=== PATIENT | female | born 1960 | race Caucasian/White ===

== ENCOUNTER 2021-12-22 07:59 | Outpatient (CLI) | payer BC, SELFPAY ==
--- NOTE | ~2021-12-22 | MM_ITS ---
EXAMINATION: MM screening [facility] BI w brittany HISTORY: Screening mammogram TECHNIQUE: Craniocaudal and mediolateral oblique 3-D tomosynthesis images were obtained and synthetic 2-D images were generated. CAD analysis was submitted and interpreted. COMPARISON: 05/06/2012 diagnostic right mammogram and right breast ultrasound examination bilateral screening mammogram BREAST PARENCHYMAL COMPOSITION: There are scattered areas of fibroglandular density. FINDINGS: There is a 4.3 mm circumscribed rounded opacity in the lower inner right breast, diminished in size compared to a mass noted in similar location on 05/06/2012. Occasional benign calcifications. There is no evidence of suspicious mass, calcification, or architec tural distortion to suggest malignancy in either breast. There has been no suspicious interval change . IMPRESSION: 1. No mammographic evidence of malignancy. 2. Recommend routine screening mammography in one year. BI-RADS Category 2: Benign finding(s). Reviewed, dictated and finalized at location A.
--- NOTE | ~2021-12-22 | DEXA_ITS ---
Bone Density Report Name: YVES ANNA Age: 61 Sex: Female Ethnicity: White Date of : 1960 Indication: postmenopausal; screening for osteoporosis; Referring Provider: BECKY DOMINGUEZ Study: Bone densitometry was performed. Exam Date: December 22, 2021 Accession number: [id number] Bone Density: Region BMD T-score Z-score Classification AP Spine(L1, L2, L3) 0.732 -2.6 -1.2 Osteoporosis Femoral Neck (Left) 0.509 -3.1 -1.8 Osteoporosis Total Hip (Left) 0.704 -2.0 -1.0 Osteopenia Femoral Neck (Right) 0.528 -2.9 -1.6 Osteoporosis Total Hip (Right) 0.728 -1.8 -0.8 Osteopenia Total Hip Mean 0.716 -1.9 -0.9 Osteopenia World Health Organization criteria for BMD impression classify patients as: Normal (T-score at or above -1.0), Osteopenia (T-score between -1.0 and -2.5), or Osteoporosis (T-score at or below -2.5). 10-year Fracture Risk: FRAX not reported because: Some T-score for Spine Total or Hip Total or Femoral Neck at or below -2.5 Treated for osteoporosis Clinical Information Provided by Patient: Is being treated for osteoporosis Has used the following medications: Vitamin D, Calcium Patient maximum height was 66 Menopause Age: 54 No regular weight bearing exercise Drinks caffeinated beverages Onset of menses at age 16 Number of children 1 Impression: The patient has osteoporosis, based on the Left Femoral Neck T-score. Discussion: It is important to ask patients whether they are taking their medications and to encourage continued and appropriate compliance with their osteoporosis therapies to reduce fracture risk. It is also important to review their risk factors and encourage appropriate calcium and vitamin D intakes, exercise, fall prevention and other lifestyle measures. Follow-Up: Consider a repeat BMD and Vertebral Fracture Assessment (VFA) exam in 2 years or sooner if medically necessary, to reassess this patient's status. Reported by: WENDY on 12/22/2021 8:32:00 AM. Reviewed, dictated and finalized at location A. KANU
== END 2021-12-22 08:00 | disposition home or self-care (01) ==
LOC: ANHIMG 08:01
PROVIDERS: PCP Family Medicine; Visit Provider Obstetrics & Gynecology Gynecology
DX: Z12.31 Encounter for screening mammogram for malignant neoplasm of breast (principal); Z78.0 Asymptomatic menopausal state; M81.0 Age-related osteoporosis without current pathological fracture; M85.852 Other specified disorders of bone density and structure, left thigh; M85.851 Other specified disorders of bone density and structure, right thigh
CPT/HCPCS: 77063; 77067; 77080

== ENCOUNTER 2022-04-21 00:22 | Day surgery (SDC) | payer BC, SELFPAY ==
[2022-04-03 14:19] VITALS: BMI 21.7
[2022-04-21 08:44] VITALS: BP 109/66; PULSE 83; RESP 16; TEMP 36.7; O2SAT 99
[2022-04-21] MEDS: LACTATED RINGERS 1,000 ML 150 ML IV CONT (08:48)
--- NOTE | 2022-04-21 09:12 | P.PNAN_ITS ---
Anes - Initial Pre Proc Eval Procedure: Operation Date: 04/21/22 10:15 Proposed Procedures p Screening Colonoscopy - Bakari Warner MD Date/Time: 04/21/22 09:12 Surgeon: Bakari Warner MD Pre Op Diagnosis: neoplasm screening Patient Data Age: 62 Gender: F Height: 1.7 m Weight: 62.1 kg Last Vital Signs Temp 36.7 C 04/21/22 08:44 Pulse 83 04/21/22 08:44 Resp 16 04/21/22 08:44 BP 109/66 04/21/22 08:44 Pulse Ox 99 04/21/22 08:44 O2 Del Method Room Air 04/21/22 08:44 Allergies Allergy/AdvReac Type Severity Reaction Status Date / Time No Known Allergies Allergy Unverified 04/21/22 08:43 Home Medications Medication Instructions Recorded Confirmed Type calcium carbonate-vitamin D3 500 1 cap PO DAILY 07/31/19 04/21/22 History mg (1,250 mg)-50 unit capsule fluticasone propionate 50 1 spray intranasal BID 07/31/19 04/21/22 History mcg/actuation nasal spray,suspension (Flonase Allergy Relief) venlafaxine 150 mg 150 mg PO DAILY 07/31/19 04/21/22 History capsule,extended release 24 hr cyanocobalamin (vitamin B-12) 1,000 mcg PO DAILY 12/04/20 04/21/22 History 1,000 mcg tablet Patient hx anesthesia problems: none Family hx anesthesia problems: none Results Review: All pre-operative results and documents have been reviewed as part of the pre- operative evaluation. [facility] Past Medical History Medical History Acute sinusitis BMI 21.0-21.9, adult Breast cancer screening by mammogram Chronic anxiety Chronic depression Chronic nasal congestion Colon cancer screening Colon cancer screening Deviated nasal septum Encounter for wellness examination in adult Epigastric pain Furuncle of left axilla Lumbago Mixed hyperlipidemia Osteoporosis Patient denies medical problems Renal insufficiency Seasonal allergic rhinitis Vitamin B12 deficiency anemia Vitamin D deficiency, unspecified Surgical History Surgical History (Updated 04/21/22 @ 09:12 by Jeffery Cornell MD) Hx of tonsillectomy Social History Social History (Updated 03/24/22 @ 13:56 by Marline Stiles MA) Smoking status: Never smoker Alcohol intake: current Alcohol use details: socially Substance use: never Substance use type: does not use Living arrangements: with family Spiritual care concerns: No Anes - Eval Final PreProcedure Day of Procedure 04/21/22 09:12 Patient weight: normal Heart: regular rate and rhythm Lungs: clear to auscultation Airway: Mallampati scale class II Neurological: alert and oriented Last oral intake: >/= 8 hours ASA classification: II Emergent: no Anesthesia type and monitoring: general GIVS and standard monitoring Results Review: All pre-operative results and documents have been reviewed as part of the pre- operative evaluation. Informed Consent: The patient's anesthetic plan and its attendant risks and benefits were discussed with the patient/family/POA. Questions were solicited and answers provided to the satisfaction of the patient/family/POA.
--- NOTE | 2022-04-21 09:34 | P.HP_ITS ---
H&P: HPI History of Present Illness Date/Time: 04/21/22 09:34 Chief Complaint: Neoplasia screening. Narrative: This is a 62-year-old white female patient presents for screening colonoscopy. Patient's current weight appetite bowel movements are normal. She denies abdominal pain. She has had no bleeding. Family history noncontributory. Patient's last exam 9 years ago in 2012 was unremarkable. Patient presents today for neoplasia screening. Review of Systems Review of Systems: Review of systems noncontributory. [facility] Past Medical History Medical History Acute sinusitis BMI 21.0-21.9, adult Breast cancer screening by mammogram Chronic anxiety Chronic depression Chronic nasal congestion Colon cancer screening Colon cancer screening Deviated nasal septum Encounter for wellness examination in adult Epigastric pain Furuncle of left axilla Lumbago Mixed hyperlipidemia Osteoporosis Patient denies medical problems Renal insufficiency Seasonal allergic rhinitis Vitamin B12 deficiency anemia Vitamin D deficiency, unspecified Surgical History Surgical History (Updated 04/21/22 @ 09:12 by Jeffery Cornell MD) Hx of tonsillectomy Social History Social History (Updated 03/24/22 @ 13:56 by Marline Stiles MA) Smoking status: Never smoker Alcohol intake: current Alcohol use details: socially Substance use: never Substance use type: does not use Living arrangements: with family Spiritual care concerns: No Meds Home Medications and Allergies Home Medications Medication Instructions Recorded Confirmed Type calcium carbonate-vitamin D3 500 1 cap PO DAILY 07/31/19 04/21/22 History mg (1,250 mg)-50 unit capsule fluticasone propionate 50 1 spray intranasal BID 07/31/19 04/21/22 History mcg/actuation nasal spray,suspension (Flonase Allergy Relief) venlafaxine 150 mg 150 mg PO DAILY 07/31/19 04/21/22 History capsule,extended release 24 hr cyanocobalamin (vitamin B-12) 1,000 mcg PO DAILY 12/04/20 04/21/22 History 1,000 mcg tablet Allergies Allergy/AdvReac Type Severity Reaction Status Date / Time No Known Allergies Allergy Unverified 04/21/22 08:43 Vital Signs Vital Signs - 24 hr 04/21/22 08:44 Temperature 98.1 F Pulse Rate 83 Respiratory Rate 16 Blood Pressure 109/66 Pulse Oximetry 99 Oxygen Delivery Room Air Exam Narrative: Physical exam reveals patient to be alert. Vital signs stable. HEENT exam is unremarkable. Patient anicteric. Lungs are clear to auscultation and percussion. Heart is without murmur or extra sounds. Abdomen bowel sounds are present soft nontender with no organomegaly. Digital external rectal exam is normal. Assessment and Plan Assessment and plan (1) Colon cancer screening: Code(s): Z12.11 - Encounter for screening for malignant neoplasm of colon Status: Acute Assessment and Plan: Patient presents for screening colonoscopy. Appears to be at average risk for colon polyps. Further recommendations will be given after colonoscopy.
[2022-04-21 10:25] VITALS: BP 117/55; PULSE 71; RESP 16; O2SAT 100
[2022-04-21 10:35] VITALS: BP 125/68; PULSE 68; RESP 16; O2SAT 100
[2022-04-21 10:45] VITALS: BP 108/70; PULSE 65; RESP 18; O2SAT 100
== END 2022-04-21 10:51 | disposition home or self-care (01) ==
PROVIDERS: PCP Family Medicine; Visit Provider Internal Medicine Gastroenterology
PROC: 0DJD8ZZ Inspection of Lower Intestinal Tract, Via Natural or Artificial Opening Endoscopic (ICD-10-PCS; CPT 45378; principal; 2022-04-21 10:15)
DX: Z12.11 Encounter for screening for malignant neoplasm of colon (principal); K51.40 Inflammatory polyps of colon without complications; D51.9 Vitamin B12 deficiency anemia, unspecified; E55.9 Vitamin D deficiency, unspecified
CPT/HCPCS: 45385; 88305; J2704; J7120

== ENCOUNTER 2022-12-24 10:04 | Outpatient (CLI) | payer BC, SELFPAY ==
--- NOTE | ~2022-12-24 | MM_ITS ---
EXAMINATION: MM screening [facility] BI w brittany HISTORY: Screening mammogram TECHNIQUE: Craniocaudal and mediolateral oblique 3-D tomosynthesis images were obtained and synthetic 2-D images were generated. CAD analysis was submitted and interpreted. COMPARISON: 12/22/2021, 05/06/2012, 05/02/2012 BREAST PARENCHYMAL COMPOSITION: There are scattered areas of fibroglandular density. FINDINGS: No suspicious mass, calcification, or architectural distortion are identified in either katherine ast to suggest malignancy. There has been no suspicious interval change. IMPRESSION: 1. No mammographic evidence of malignancy. 2. Recommend routine screening mammography in one year. BI-RADS Category 1: Negative Reviewed, dictated and finalized at location A.
== END 2022-12-24 10:05 | disposition home or self-care (01) ==
LOC: ANHIMG 10:05
PROVIDERS: PCP Family Medicine; Visit Provider Obstetrics & Gynecology Gynecology
DX: Z12.31 Encounter for screening mammogram for malignant neoplasm of breast (principal)
CPT/HCPCS: 77063; 77067

== ENCOUNTER 2024-02-17 15:32 | Outpatient (CLI) | payer BC, SELFPAY ==
--- NOTE | ~2024-02-17 | MM_ITS ---
EXAMINATION: MM screening [facility] BI w brittany HISTORY: Screening TECHNIQUE: Craniocaudal and mediolateral oblique 3-D tomosynthesis images were obtained and synthetic 2-D images were generated. CAD analysis was submitted and interpreted. COMPARISON: Comparison to multiple prior studies sequentially, with oldest reviewed study dated 12/22. BREAST PARENCHYMAL COMPOSITION: Not dense: There are scattered areas of fibroglandular density. FINDINGS: Stable benign-appearing right breast mass, lower inner quadrant. There is no evidence of braxton spicious mass, calcification, or architectural distortion to suggest malignancy in either breast. The re has been no suspicious interval change. IMPRESSION: 1. No mammographic evidence of malignancy. 2. Recommend routine screening mammography in one year. BI-RADS CATEGORY 2 - BENIGN FINDINGS Reviewed, dictated and finalized at location B.
== END 2024-02-17 15:33 | disposition home or self-care (01) ==
LOC: ANHIMG 15:32
PROVIDERS: PCP Family Medicine; Visit Provider Obstetrics & Gynecology Gynecology
DX: Z12.31 Encounter for screening mammogram for malignant neoplasm of breast (principal)
CPT/HCPCS: 77063; 77067

== ENCOUNTER 2024-02-23 10:08 | Outpatient (CLI) | payer BC, SELFPAY ==
--- NOTE | ~2024-02-23 | XR_ITS ---
EXAMINATION: XR chest 2V 02/23/2024 10:38 INDICATION: Chest pain PROCEDURE: 2 view chest COMPARISON: No prior studies for comparison. FINDINGS: The lungs are clear. The cardiomediastinal silhouette is within normal limits. There are no pleural effusions. There is no pneumothorax suspected. IMPRESSION: 1: NO ACUTE CARDIOPULMONARY DISEASE. Reviewed, dictated and finalized at location B.
--- NOTE | 2024-02-23 10:40 | ECG_ITS ---
Test Date: 2024-02-23 10:48:07 Measurements Intervals Adrian Rate: 64 P: 72 [place]: 181 QRS: 52 QRSD: 86 T: 53 QT: 410 QTc: 425 Interpretive Statements SINUS RHYTHM POSSIBLE LEFT ATRIAL ENLARGEMENT BORDERLINE ST ABNORMALITY- ANTEROLAT/INF LEADS BASELINE ARTIFACT- II, III, AVF BORDERLINE ECG No previous ECG available for comparison Electronically Signed On 02-23-2024 12:32:10 CDT by Enrico Stafford D.O.
== END 2024-02-23 10:09 | disposition home or self-care (01) ==
PROVIDERS: PCP Family Medicine; Visit Provider Family Medicine
DX: R07.9 Chest pain, unspecified (principal); R94.31 Abnormal electrocardiogram [ECG] [EKG]
CPT/HCPCS: 71046; 93005

== ENCOUNTER 2024-04-04 07:52 | Outpatient (CLI) | payer BC, SELFPAY ==
--- NOTE | 2024-04-04 08:05 | EST_ITS ---
Patient Info Name: Sparkle Sepulveda Age: 63 years : 1960 Gender: Female Ht: 67 in Wt: 129 lbs BSA: 1.66 m2 HR: 60 bpm BP: 144 / 78 mmHg Heart Rhythm: Sinus Rhythm Exam Date: 04/04/2024 8:40 AM Exam Location: Echo Lab Patient Status: Outpatient Admit Date: 04/04/2024 Staff Ordering Physician: Sam Sagastume MD Attending Provider: Sam Sagastume MD Exercise Technologist: Yulisa Saldaña CT Exercise Physician: Enrico Stafford DO Exam Type: CA stress test treadmill Study Info Indications R07.89 - Other chest pain A treadmill exercise stress test was performed. Summary 1. 1. Negative Armando exercise stress test for ischemic ST changes by ECG criteria. 2. 2. Good functional capacity, achieving 8.9 METs of workload. 3. 3. Baseline hypertension. 4. 4. Appropriate HR response to exercise. 5. 5. Appropriate HR recovery at 1 minute post exercise. 6. 6. No imaging with stress testing. 7. 7. Patient informed of the above results. Protocol: Armando Stress ECG Details Stage: REST Duration (min): 0 min : 50 sec Speed (mph): 0.0 Grade (%): 0 HR (bpm): 60 SBP (mmHg): 144 DBP (mmHg): 78 METS: --- Stage: REST Duration (min): 6 min : 22 sec Speed (mph): 0.0 Grade (%): 0 HR (bpm): 64 SBP (mmHg): 144 DBP (mmHg): 78 METS: --- Stage: STAGE 1 Duration (min): 1 min : 0 sec Speed (mph): 1.7 Grade (%): 10 HR (bpm): 93 SBP (mmHg): 144 DBP (mmHg): 78 METS: --- Stage: STAGE 1 Duration (min): 2 min : 0 sec Speed (mph): 1.7 Grade (%): 10 HR (bpm): 102 SBP (mmHg): 144 DBP (mmHg): 78 METS: --- Stage: STAGE 1 Duration (min): 3 min : 0 sec Speed (mph): 1.7 Grade (%): 10 HR (bpm): 106 SBP (mmHg): 153 DBP (mmHg): 88 METS: --- Stage: STAGE 2 Duration (min): 1 min : 0 sec Speed (mph): 2.5 Grade (%): 12 HR (bpm): 118 SBP (mmHg): 153 DBP (mmHg): 88 METS: --- Stage: STAGE 2 Duration (min): 2 min : 0 sec Speed (mph): 2.5 Grade (%): 12 HR (bpm): 127 SBP (mmHg): 142 DBP (mmHg): 84 METS: --- Stage: STAGE 2 Duration (min): 3 min : 0 sec Speed (mph): 2.5 Grade (%): 12 HR (bpm): 132 SBP (mmHg): 142 DBP (mmHg): 84 METS: --- Stage: STAGE 3 Duration (min): 1 min : 0 sec Speed (mph): 3.4 Grade (%): 14 HR (bpm): 142 SBP (mmHg): 108 DBP (mmHg): 80 METS: --- Stage: STAGE 3 Duration (min): 1 min : 0 sec Speed (mph): 3.4 Grade (%): 14 HR (bpm): 142 SBP (mmHg): 108 DBP (mmHg): 80 METS: --- Stage: RECOVERY Duration (min): 0 min : 59 sec Speed (mph): 0.0 Grade (%): 0 HR (bpm): 128 SBP (mmHg): 108 DBP (mmHg): 80 METS: --- Stage: RECOVERY Duration (min): 1 min : 26 sec Speed (mph): 0.0 Grade (%): 0 HR (bpm): 118 SBP (mmHg): 133 DBP (mmHg): 89 METS: --- Rest HR: 64 bpm Peak HR: 143 bpm Rest Sys BP: 144 mmHg Peak Sys BP: 153 mmHg Max Pred HR: 158 bpm % Max Pred HR: 91 % Target HR:
== END 2024-04-04 07:53 | disposition home or self-care (01) ==
PROVIDERS: PCP Family Medicine; Visit Provider Family Medicine
DX: R07.9 Chest pain, unspecified (principal)
CPT/HCPCS: 93017

== ENCOUNTER 2024-04-06 03:01 | Day surgery (SDC) | payer BC, SELFPAY ==
[2024-03-15 11:56] VITALS: BMI 21.0
[2024-04-06 09:41] VITALS: BP 128/73; PULSE 74; RESP 20; TEMP 36.5; O2SAT 98
[2024-04-06] MEDS: LACTATED RINGERS 1,000 ML 150 ML IV CONT (09:47)
--- NOTE | 2024-04-06 10:16 | WPDANESEPPF ---
Anes - Initial Pre Proc Eval Procedure: Operation Date: 04/06/24 11:00 Proposed Procedures p Esophagogastroduodenoscopy - Mushtaq Barragan MD Date/Time: 04/06/24 10:16 Surgeon: Mushtaq Barragan MD Pre Op Diagnosis: GERD, Epigastric pain Patient Data Age: 63 Gender: F Height: 1.68 m Weight: 58.1 kg Last Vital Signs Temp 97.7 F 04/06/24 09:41 Pulse 74 04/06/24 09:41 Resp 20 04/06/24 09:41 BP 128/73 04/06/24 09:41 Pulse Ox 98 04/06/24 09:41 O2 Del Method Room Air 04/06/24 09:41 Allergies Allergy/AdvReac Type Severity Reaction Status Date / Time No Known Allergies Allergy Verified 04/06/24 09:39 Home Medications Medication Instructions Recorded Confirmed Type fluticasone propionate 50 1 spray intranasal BID 07/31/19 04/06/24 History mcg/actuation nasal spray,suspension (Flonase Allergy Relief) cyanocobalamin (vitamin B-12) 1,000 mcg PO DAILY 12/04/20 04/06/24 History 1,000 mcg tablet denosumab 60 mg/mL subcutaneous 60 mg subcut [id number] 03/29/23 04/06/24 History syringe (Prolia) ergocalciferol (vitamin D2) 50,000 50,000 unit PO . weekly 03/29/23 04/06/24 History unit tablet calcium carbonate (Calcium 500) 500 mg PO DAILY 10/28/23 04/06/24 History venlafaxine 150 mg 150 mg PO DAILY #30 caps 10/28/23 04/06/24 Rx capsule,extended release 24 hr esomeprazole magnesium 40 mg 40 mg PO DAILY #30 caps 03/06/24 04/06/24 Rx capsule,delayed release (Nexium) Patient hx anesthesia problems: none Family hx anesthesia problems: none Results Review: All pre-operative results and documents have been reviewed as part of the pre-operative evaluation. [facility] Past Medical History Medical History (Updated 03/30/24 @ 11:13 by Sam Sagastume MD) Acute sinusitis BMI 20.0-20.9, adult BMI 21.0-21.9, adult BMI 22.0-22.9, adult Breast cancer screening by mammogram Normal mammogram 12/24/2022. normal mammogram 02/17/2024. Chest pain at rest Chronic anxiety Thyroid function normal with TSH 3.18 on 03/26/2022. TSH 2.83 on 03/25/2023. Chronic depression Chronic nasal congestion Colon cancer screening Deviated nasal septum Deviated to the right Encounter for wellness examination in adult Epigastric pain Furuncle of left axilla GERD (gastroesophageal reflux disease) Lumbago Mixed hyperlipidemia Total cholesterol 247, triglycerides 144, HDL excellent at 87, LDL 133 with ratio 2.8 on 03/26/2022. Cholesterol 247, triglycerides 122, HDL 82, LDL 141 with ratio of 3.1 on 03/25/2023. Total cholesterol 216, HDL 76, triglycerides 116, LDL 118 with ratio of 2.8 on 02/23/2024. Osteoporosis DEXA scan on 12/24/2022 reveals T-score -2.6 at the spine, -3.1 of the left hip and -2.9 of the right hip. Patient denies medical problems Polyp of colon (04/21/22) single pedunculated polyp , benign inflammatory, transverse colon 04/21/2022 recheck in 10 years.. Renal insufficiency Normal renal function with BUN 13 and creatinine 1.02 on 03/26/2022. BUN 12, creatinine 1.01 with GFR 63 on 03/25/2023. Seasonal allergic rhinitis Vitamin B12 deficiency anemia level low at 293 with hemoglobin 13.7 on 03/26/2022. Level normal at 765 with hemoglobin 14.7 on 03/25/2023. Vitamin D deficiency, unspecified level at 99 on 02/23/2024. Surgical History Surgical History Hx of tonsillectomy Social History Social History Smoking status: Never smoker Alcohol intake: current Alcohol use details: socially Substance use: never Substance use type: does not use Lack of Transportation: No Lack of Food: Never True Current Housing: I Have Housing Concerned About Future Housing: No Difficulty Paying Gas/Electric Bills: No Difficulty Paying for Meds: No Currently Unemployed: No Education: Bachelor's Degree Difficulty w/ Childcare or Family
--- NOTE | 2024-04-06 10:30 | PM.HPGS ---
History of Present Illness History of Present Illness Consent: Risks, benefits, and alternatives have been discussed and questions answered. Patient agrees to proceed with procedure. Chief complaint: GERD, Epigastric pain Narrative: Sparkle Sepulveda is a 63 year old female here for first EGD, h/o GERD on nexium, lately with chest discomfort and hiccups Review of Systems Review of Systems: All systems reviewed & are unremarkable except as noted in HPI and below PMFSH Past Medical History Medical History (Updated 03/30/24 @ 11:13 by Sam Sagastume MD) Acute sinusitis BMI 20.0-20.9, adult BMI 21.0-21.9, adult BMI 22.0-22.9, adult Breast cancer screening by mammogram Normal mammogram 12/24/2022. normal mammogram 02/17/2024. Chest pain at rest Chronic anxiety Thyroid function normal with TSH 3.18 on 03/26/2022. TSH 2.83 on 03/25/2023. Chronic depression Chronic nasal congestion Colon cancer screening Deviated nasal septum Deviated to the right Encounter for wellness examination in adult Epigastric pain Furuncle of left axilla GERD (gastroesophageal reflux disease) Lumbago Mixed hyperlipidemia Total cholesterol 247, triglycerides 144, HDL excellent at 87, LDL 133 with ratio 2.8 on 03/26/2022. Cholesterol 247, triglycerides 122, HDL 82, LDL 141 with ratio of 3.1 on 03/25/2023. Total cholesterol 216, HDL 76, triglycerides 116, LDL 118 with ratio of 2.8 on 02/23/2024. Osteoporosis DEXA scan on 12/24/2022 reveals T-score -2.6 at the spine, -3.1 of the left hip and -2.9 of the right hip. Patient denies medical problems Polyp of colon (04/21/22) single pedunculated polyp , benign inflammatory, transverse colon 04/21/2022 recheck in 10 years.. Renal insufficiency Normal renal function with BUN 13 and creatinine 1.02 on 03/26/2022. BUN 12, creatinine 1.01 with GFR 63 on 03/25/2023. Seasonal allergic rhinitis Vitamin B12 deficiency anemia level low at 293 with hemoglobin 13.7 on 03/26/2022. Level normal at 765 with hemoglobin 14.7 on 03/25/2023. Vitamin D deficiency, unspecified level at 99 on 02/23/2024. Surgical History Surgical History Hx of tonsillectomy Social History Social History Smoking status: Never smoker Alcohol intake: current Alcohol use details: socially Substance use: never Substance use type: does not use Lack of Transportation: No Lack of Food: Never True Current Housing: I Have Housing Concerned About Future Housing: No Difficulty Paying Gas/Electric Bills: No Difficulty Paying for Meds: No Currently Unemployed: No Education: Bachelor's Degree Difficulty w/ Childcare or Family Care: No Living arrangements: with family Spiritual care concerns: No Meds Home Medications and Allergies Home Medications Medication Instructions Recorded Confirmed Type fluticasone propionate 50 1 spray intranasal BID 07/31/19 04/06/24 History mcg/actuation nasal spray,suspension (Flonase Allergy Relief) cyanocobalamin (vitamin B-12) 1,000 mcg PO DAILY 12/04/20 04/06/24 History 1,000 mcg tablet denosumab 60 mg/mL subcutaneous 60 mg subcut [id number] 03/29/23 04/06/24 History syringe (Prolia) ergocalciferol (vitamin D2) 50,000 50,000 unit PO . weekly 03/29/23 04/06/24 History unit tablet calcium carbonate (Calcium 500) 500 mg PO DAILY 10/28/23 04/06/24 History venlafaxine 150 mg 150 mg PO DAILY #30 caps 10/28/23 04/06/24 Rx capsule,extended release 24 hr esomeprazole magnesium 40 mg 40 mg PO DAILY #30 caps 03/06/24 04/06/24 Rx capsule,delayed release (Nexium) Allergies Allergy/AdvReac Type Severity Reaction Status Date / Time No Known Allergies Allergy Verified 04/06/24 09:39 Vital Signs Vital Signs - 24 hr 04/06/24 09:41 Temperature 97.7 F Pulse Rate 74 Respiratory Rate 20 Blood Pressure 128/73 Pulse Oximetry 98 Oxyge
[2024-04-06 10:44] VITALS: BP 105/54; PULSE 68; RESP 18; O2SAT 97
[2024-04-06 10:54] VITALS: BP 107/46; PULSE 62; RESP 18; O2SAT 99
[2024-04-06 11:04] VITALS: BP 103/76; PULSE 60; RESP 20; O2SAT 100
== END 2024-04-06 11:19 | disposition home or self-care (01) ==
PROVIDERS: PCP Family Medicine; Visit Provider Internal Medicine Gastroenterology
PROC: 0DJ08ZZ Inspection of Upper Intestinal Tract, Via Natural or Artificial Opening Endoscopic (ICD-10-PCS; CPT 43235; principal; 2024-04-06 11:00)
DX: K21.00 Gastro-esophageal reflux disease with esophagitis, without bleeding (principal); F41.9 Anxiety disorder, unspecified; F32.A Depression, unspecified; R09.81 Nasal congestion; E78.2 Mixed hyperlipidemia; M81.0 Age-related osteoporosis without current pathological fracture; N28.9 Disorder of kidney and ureter, unspecified; D51.9 Vitamin B12 deficiency anemia, unspecified; E55.9 Vitamin D deficiency, unspecified; Z86.010 Personal history of colon polyps; Z98.890 Other specified postprocedural states
CPT/HCPCS: 43239; 88305; J2704; J7120

== ENCOUNTER 2024-09-14 08:58 | Outpatient (CLI) | payer BC, SELFPAY ==
--- NOTE | ~2024-09-14 | DEXA_ITS ---
Bone Density Report Name: YVES ANNA Age: 64 Sex: Female Ethnicity: White Date of : 1960 Indication: postmenopausal osteoporosis; monitoring treatment; height loss; Referring Provider: BECKY DOMINGUEZ Study: Bone densitometry was performed. Exam Date: September 14, 2024 Accession number: [id number] Bone Density: Region BMD T-score Z-score Classification AP Spine(L1, L2, L3) 0.650 -3.3 -1.7 Osteoporosis Femoral Neck (Left) 0.492 -3.2 -1.8 Osteoporosis Total Hip (Left) 0.678 -2.2 -1.0 Osteopenia Femoral Neck (Right) 0.492 -3.2 -1.8 Osteoporosis Total Hip (Right) 0.696 -2.0 -0.9 Osteopenia Total Hip Mean 0.687 -2.1 -1.0 Osteopenia World Health Organization criteria for BMD impression classify patients as: Normal (T-score at or above -1.0), Osteopenia (T-score between -1.0 and -2.5), or Osteoporosis (T-score at or below -2.5). 10-year Fracture Risk: FRAX not reported because: Some T-score for Spine Total or Hip Total or Femoral Neck at or below -2.5 Treated for osteoporosis Previous Exams: Region Exam Age BMD T-score BMD Change BMD Change Date g/cm2 vs Baseline vs Previous AP Spine (L1-L3) 09/14/2024 64 0.650 -3.3 -0.083 (-11.3% -0.083 (-11.3% 12/22/2021 61 0.732 -2.6 Total Hip(Left) 09/14/2024 64 0.678 -2.2 -0.026 (-3.6%) -0.026 (-3.6%) 12/22/2021 61 0.704 -2.0 Total Hip(Right) 09/14/2024 64 0.696 -2.0 -0.032 (-4.3%) -0.032 (-4.3%) 12/22/2021 61 0.728 -1.8 *Denotes significance at 95% confidence level, LSC for AP Spine = 0.022 g/cm2, LSC for Total Hip = 0.027 g/cm2 # Denotes dissimilar scan types or analysis methods Clinical Information Provided by Patient: Is being treated for osteoporosis Has used the following medications: Prolia (i.e. denosumab), Vitamin D, Calcium Patient maximum height was 67 Menopause Age: 54 No regular weight bearing exercise Drinks caffeinated beverages Onset of menses at age 17 Number of children 1 Impression: The patient has osteoporosis, based on the Total Spine T-score. No significant bone loss was observed. Discussion: PATIENT UNDER TREATMENT WITH NO SIGNIFICANT BMD LOSS SINCE LAST EXAM. In an untreated patient, BMD typically declines with age. A lack of decline or gain is usually a sign that treatment is efficacious and fracture risk is reduced. It is important to ask patients whether they are taking their medications and to encourage continued and appropriate compliance with their osteoporosis therapies to reduce fracture risk. It is also important to review their risk factors and encourage appropriate calcium and vitamin D intakes, exercise, fall prevention and other lifestyle measures. Follow-Up: Consider a repeat BMD and Vertebral Fracture Assessment (VFA) exam in 2 years or sooner if medically necessary, to reassess this patient's status. Reported by: STEPHANIE on 09/14/2024 9:39:00 AM. Reviewed, dictated and finalized at location [facility]
--- OUTSIDE RECORDS SUMMARY | 2024-09-14 09:16 | XMS_ITS | Patient Health Summary ---
Author Organization [facility] [employer] Address [address] [place] [address] Care Team Providers Care Field Services Analyst Name Role Phone Sam Sagastume MD Primary Care Provider [phone] Note from [facility],non-owned Affiliates and Associated Physician Practices is amultiple site organization consisting of ambulatory clinics and hospital sitesin [place], [place], [place] and [place]. This disclosure is being madepursuant to the Care Everywhere program and may not contain all information available regarding this patient. Last updated 18.[facility] [employer] Allergies No known active allergies Medications * Be aware that medications may not be up to date on this document. Alwaysverify current medications with the patient. * fluticasone propionate (FLONASE) 50 MCG/ACT nasal spray(Started 11/20/2011) * venlafaxine XR 24hr (EFFEXOR XR) 75 MG capsule(Started 05/24/2015) Take 75 mg by mouth 3 times daily * estradiol (VAGIFEM) 10 MCG vaginal tablet(Started 08/29/2015) Insert 1 Tab into the vagina every Wednesday, Wednesday, & Wednesday 8 refills left Active Problems Problem Noted Date Diagnosed Date R Breast density 05/26/2012 Female Stress Incontinence, when sneeze 08/12/19 10 Encounter for health-related screening 8 Social History Tobacco Use Types Packs/Day Years Used Date Smoking Tobacco: Never Smokeless Tobacco: Never Alcohol Use Standard Drinks/Week Comments Yes 0 (1 standard drink = 0.6 oz pur e alcohol) casual Sex and Gender Information Value Date Recorded Sex Assigned at Not on file Gender Identity Not on file Sexual Orientation Not on file Last Filed Vital Signs Vital Sign Reading Time Taken Comments Blood Pressure 120/74 06/03/2015 9:39 AM [employer] Pulse - - Temperature - - Respiratory Rate - - Oxygen Saturation - - Inhaled Oxygen Concentration - - Weight 62.1 kg (137 lb) 06/03/2015 9:39 AM [employer] Height 168.9 cm (5' 6.5 ) 06/03/2015 9:39 AM [employer] Body Mass Index 21.78 06/03/2015 9:39 AM [employer] Procedures * DERMATOPATHOLOGY(Performed 09/08/2023) * MAMMO BILAT SCREENING(Performed 12/20/2020) Performed for Visit for screening mammogram * DERMATOPATHOLOGY(Performed 07/01/2020) * DERMATOPATHOLOGY(Performed 06/12/2020) * MAMMO BILAT SCREENING(Performed 12/20/2019) Performed for Visit for screening mammogram * DEXA BONE DENSITY AXIAL SKELETON(Performed 11/04/2018) Performed for Screening for osteoporosis * MAMMO BILAT SCREENING(Performed 11/04/2018) Performed for Visit for screening mammogram * MAMMO BILAT SCREENING(Performed 08/20/2017) Performed for Visit for screening mammogram * DEXA BONE DENSITY AXIAL SKELETON(Performed 08/12/2016) Performed for Osteoporosis screening * MAMMO BILAT SCREENING(Performed 08/12/2016) Performed for Visit for screening mammogram * US BREAST RIGHT LTD(Performed 05/08/2015) Performed for Abnormal mammogram * MAMMO BILAT SCREENING(Performed 05/08/2015) Performed for Visit for screening mammogram * US BREAST RIGHT LTD(Performed 11/05/2014) Performed for R Breast density * US BREAST RIGHT COMPLETE(Performed 05/07/2014) Performed for Abnormal mammogram, unspecified, Lump Or Mass In Breast * MAMMO BILAT SCREENING(Performed 05/07/2014) Performed for Other screening mammogram * US BREAST RIGHT COMPLETE(Performed 11/06/2013) Performed for Lump Or Mass In Breast * MAMMO RIGHT DIAGNOSTIC(Performed 11/06/2013) Performed for Lump Or Mass In Breast * PAP IG LB RFLX HPV HR ALL(Performed 05/11/2013) Performed for Routine gynecological examination * US BREAST BILATERAL COMPLETE(Performed 05/04/2013) Performed for Lump Or Mass In Breast * MAMMO BILAT DIAGNOSTIC(Performed 05/04/2013) Performed for Lump Or Mass In Breast * US BREAST RIGHT COMPLETE(Performed 11/22/2012) Performed for Lump or mass in breast * MAMMO RIGHT DIAGNOSTIC(Performed 11/22/2012) Performed for Lump or mass in breast * MAMMO RIGHT DIAGNOSTIC(Performed 05/06/2012) Performed for Abnormal mammogram * MAMMO BILAT SCREENING(Performed 05/02/2012) * MAMMO BILAT SCREENING(Performed 05/02/2012) Performed for Other screening mammogram * PAP IG LB RFLX HPV HR ALL(Performed 04/18/2012) Performed for Routine gynecological examination * PAP IG LB RFLX HPV HR ALL(Performed 12/26/2010) Performed for Routine gynecological examination * IMAGING/RADIOLOGY/XRAY RESULTS ORDER(Performed 09/03/2009) * MAMMO BILAT DIAGNOSTIC(Performed 08/23/2009) Performed for Abnormal Mammogram * MAMMO BILAT SCREENING(Performed 08/21/2009) Performed for Breast Cancer Screening * PAP IG LB RFLX HPV HR ALL(Performed 08/12/2009) Performed for Routine Gynecological Examination * MAMMO BILAT SCREENING(Performed 08/06/2008) Performed for Breast Cancer Screening * CYTOLOGY CERVICAL/VAG PAP SCREEN THIN PREP(Performed 07/12/2008) Results * DERMATOPATHOLOGY (09/08/2023 3:33 AM [employer]) Only the most recent of3 resultswithin the time period is included. Case Report Dermatopathology Report Case: [id number] Authorizing Provider: Byron Boothe MD Collected: 09/08/2023 03:33 AM Ordering Location: [facility] Lab Received: 09/09/2023 07:43 AM Pathologist: Rosibel Foss MD Specimen: Skin, right 3rd finger periungual 4 4:48 PM [facility] DERMATOPATHOLOGY LABORATORY Final Diagnosis Specimen A. 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 The specimen consists of a shave removal measuring 6x4x1 mm. Jar 0. 4 4:48 PM [facility] DERMATOPATHOLOGY LABORATORY Microscopic Description Specimen A. SKIN, right 3rd finger periungual: Sections show acral skin with mucin in pools trapped within the cornified layer. There is also mucinous degeneration of the superficial dermis with minimal inflammation. 4 4:48 PM [facility] DERMATOPATHOLOGY LABORATORY Disclaimer An external and internal positive and negative controls are appropriate for the histochemical, immunohistochemical and immunofluorescence stain(s) in this case (if any), except where stated explicitly. The performance characteristics of the stain(s) cited in this report were developed and its performance characteristic determined by the Dermatopathology Laboratory at [facility], directed by Dr. Mandy Neal. These tests need not be, and therefore are not, approved by the [place] Food and Drug Administration. The tests are used for clinical purposes. Billing Codes Specimen Charges Stain Charges 62814 1 4 4:48 PM [facility] DERMATOPATHOLOGY LABORATORY Embedded Images 4 4:48 PM [facility] DERMATOPATHOLOGY LABORATORY Pathology/Cytolo gy TISSUE SPECIMEN FROM SKIN / Unknown 09/08/2023 3:33 AM [employer] 09/09/2023 7:43 AM [employer] Byron Boothe MD LAB - PATHOLOGY/CYTO LOGY ORDERABLES DERMATOPATHOLOGY LABORATORY [facility] - Department of Dermatology [address] [phone] * MAMMO BILAT SCREENING (12/20/2020 9:55 AM CDT) Only the most recent of11 resultswithin the time period is included. Anatomical Region Laterality Modality Breast Bilateral Mammography 12/20/2020 12:3 0 PM CDT Impressions 12/20/2020 12:49 PM CDT Annual screening mammography is recommended. OVERALL FINAL ASSESSMENT: BI-RADS CATEGORY 2: BENIGN. *Reading Radiologist: Monalisa Vann on 12/20/2020 at 12:49 PM Narrative 12/20/2020 12:49 PM CDT EXAMINATION: BILATERAL DIGITAL SCREENING MAMMOGRAM AND BILATERAL BREAST TOMOSYNTHESIS HISTORY: Screening. COMPARISON: Serial examinations dating back to 08/12/2016 TECHNIQUE: BILATERAL digital breast tomosynthesis (DBT) and synthetic 2D digital mammogram images were obtained (bilateral craniocaudal and mediolateral oblique projections) including computer aided detection (CAD.) BREAST PARENCHYMAL COMPOSITION:Category B: There are scattered areas of fibroglandular density. MAMMOGRAM FINDINGS: There is no suspicious finding in either breast. There are stable bilateral benign round and coarse microcalcifications. There is a stable round equal to low-density 6 mm mass in the right anterior medial breast. Overall, there has been no significant interval change in the appearance of either breast. Sam Sagastume MD MAMMO ORDERABLES * DEXA BONE DENSITY AXIAL SKELETON (11/04/2018 12:28 PM CDT) Only the most recent of2 resultswithin the time period is included. 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 WORLD HEALTH ORGANIZATION DEFINITIONS NORMAL= T-Score at or above -1.0 SD OSTEOPENIA = T-Score between -1 and -2.5 SD OSTEOPOROSIS = T-Score at or below -2.5 SD Reading Radiologist: Ash Morrow MD on 11/04/2018 at 12:50 PM Narrative 11/04/2018 12:50 PM CDT BONE MINERAL DENSITY STUDY: INDICATION: 58-year-old for osteoporosis screening. FINDINGS: Comparison is made to prior exam from 08/12/2016. The mean bone mineral content of the lumbar spine is 0.872 g/cm2 and T-score -2.6, consistent with osteoporotic bone mineral density (previously 0.779 g/cm2 and T-score was -3.3). The mean bone mineral content of the left femoral neck is 0.645 g/cm2 and T-score -2.8, consistent with osteoporotic bone mineral density (previously 0.670 g/cm2 and T-score was -2.6). The mean bone mineral content of the left total hip is 0.727 g/cm2 and T-score -2.2, consistent with osteopenic bone mineral density (previously 0.674 g/cm2 and T-score was -2.6). The mean bone mineral content of the right femoral neck is 0.626 g/cm2 and T-score -3.0, consistent with osteoporotic bone mineral density (previously 0.630 g/cm2 and T-score was -2.9). The mean bone mineral content of the right total hip is 0.744 g/cm2 and T-score -2.1, consistent with osteopenic bone mineral density (previously 0.670 g/cm2 and T-score was -2.7). FRAX 10 year fracture risk Major osteoporotic fracture: 11.2% Hip fracture: 2.8% Procedure Note Ash Morrow DO - 11/04/2018 BONE MINERAL DENSITY STUDY: INDICATION: 58-year-old for osteoporosis screening. FINDINGS: Comparison is made to prior exam from 08/12/2016. The mean bone mineral content of the lumbar spine is 0.872 g/cm2 and T-score -2.6, consistent with osteoporotic bone mineral density (previously 0.779 g/cm2 and T-score was -3.3). The mean bone mineral content of the left femoral neck is 0.645 g/cm2 and T-score -2.8, consistent with osteoporotic bone mineral density (previously 0.670 g/cm2 and T-score was -2.6). The mean bone mineral content of the left total hip is 0.727 g/cm2 and T-score -2.2, consistent with osteopenic bone mineral density (previously 0.674 g/cm2 and T-score was -2.6). The mean bone mineral content of the right femoral neck is 0.626 g/cm2 and T-score -3.0, consistent with osteoporotic bone mineral density (previously 0.630 g/cm2 and T-score was -2.9). The mean bone mineral content of the right total hip is 0.744 g/cm2 and T-score -2.1, consistent with osteopenic bone mineral density (previously 0.670 g/cm2 and T-score was -2.7). 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 WORLD HEALTH ORGANIZATION DEFINITIONS NORMAL= T-Score at or above -1.0 SD OSTEOPENIA = T-Score between -1 and -2.5 SD OSTEOPOROSIS = T-Score at or below -2.5 SD Reading Radiologist: Ash Morrow MD on 11/04/2018 at 12:50 PM Cedrick Guadalupe MD DEXA ORDERABLES * US BREAST RIGHT LTD (05/08/2015 10:34 AM CDT) Only the most recent of2 resultswithin the time period is included. Anatomical Region Laterality Modality Breast Right Ultrasound 05/08/2015 10:4 6 AM CDT Impressions 05/08/2015 12:06 PM CDT No mammographic evidence of malignancy in either breast. ASSESSMENT: BIRADS Category 2: Benign finding. RECOMMENDATION: Bilateral screening mammogram in one year. Thank you for allowing us to participate in the care of your patient. [facility] utilizes [employer] as a reminder system to notify patients of their next recommended mammogram. Report dictated by Susie Nathan MD (president mortgage company). I, Monalisa Thomas, have personally reviewed the images and I agree with this report. Narrative 05/08/2015 12:06 PM CDT EXAMINATION: 1. Digital screening mammogram on 05/08/2015. 2. Limited right breast ultrasound. Computer assisted detection was utilized. PRIOR: Comparison is made to prior studies dated 11/05/2014, 05/07/2014. FINDINGS: Breast parenchymal density: The breasts are heterogeneously dense, which may obscure small masses. Risk assessment calculation: Not performed. No suspicious masses, areas of architectural distortion or microcalcifications are evident. There has been no significant interval change since the prior examination. Targeted ultrasound of the right retroareolar region demonstrates a stable oval-shaped hypoechoic area behind the nipple measuring 18 x 13.5 x 6.4 mm, previously 20 x 12.3 x 6.1 mm. There is no mammography correlate. This has been present since October 2012 and stable. Procedure Note Tash Thomas MD - 05/08/2015 EXAMINATION: 1. Digital screening mammogram on 05/08/2015. 2. Limited right breast ultrasound. Computer assisted detection was utilized. PRIOR: Comparison is made to prior studies dated 11/05/2014, 05/07/2014. FINDINGS: Breast parenchymal density: The breasts are heterogeneously dense, which may obscure small masses. Risk assessment calculation: Not performed. No suspicious masses, areas of architectural distortion or microcalcifications are evident. There has been no significant interval change since the prior examination. Targeted ultrasound of the right retroareolar region demonstrates a stable oval-shaped hypoechoic area behind the nipple measuring 18 x 13.5 x 6.4 mm, previously 20 x 12.3 x 6.1 mm. There is no mammography correlate. This has been present since October 2012 and stable. IMPRESSION No mammographic evidence of malignancy in either breast. ASSESSMENT: BIRADS Category 2: Benign finding. RECOMMENDATION: Bilateral screening mammogram in one year. Thank you for allowing us to participate in the care of your patient. [facility] utilizes [employer] as a reminder system to notify patients of their next recommended mammogram. Report dictated by Susie Nathan MD (president mortgage company). I, Monalisa Thomas, have personally reviewed the images and I agree with this report. Genevieve Gtz MD US ORDERAB LES * US BREAST UNILATERAL RIGHT (05/07/2014 10:08 AM CDT) Only the most recent of3 resultswithin the time period is included. Anatomical Region Laterality Modality Breast Right Ultrasound 05/07/2014 10:2 0 AM CDT Narrative 05/07/2014 10:23 AM CDT EXAMINATION: Digital screening mammogram and right breast ultrasound on 05/07/14. PRIOR: 2013 and outside mammograms 2009 2011 FINDINGS: Computer assisted detection was utilized. Tissue is heterogeneously dense which may obscure small masses. Parenchymal pattern of both breasts is stable. Nodular tissue in the lower inner right breast consistent with cysts on ultrasound is stable. Ultrasound of the right retroareolar region demonstrates a stable oval-shaped hypoechoic area behind the nipple measuring up to 17 mm in transverse dimension. There is no mammographic correlate. This is been present since October 2012 and stable. One more right breast ultrasound in 6 months is recommended.. ASSESSMENT: BIRADS Category 3: Probably benign finding. Short interval follow up suggested. RECOMMENDATION: Targeted right breast ultrasound in 6 Thank you for allowing us to participate in the care of your patient. [facility] utilizes [employer] as a reminder system to notify patients of their next recommended mammogram. Procedure Note Tash Thomas MD - 05/07/2014 EXAMINATION: Digital screening mammogram and right breast ultrasound on 05/07/14. PRIOR: 2013 and outside mammograms 2009 2011 FINDINGS: Computer assisted detection was utilized. Tissue is heterogeneously dense which may obscure small masses. Parenchymal pattern of both breasts is stable. Nodular tissue in the lower inner right breast consistent with cysts on ultrasound is stable. Ultrasound of the right retroareolar region demonstrates a stable oval-shaped hypoechoic area behind the nipple measuring up to 17 mm in transverse dimension. There is no mammographic correlate. This is been present since October 2012 and stable. One more right breast ultrasound in 6 months is recommended.. ASSESSMENT: BIRADS Category 3: Probably benign finding. Short interval follow up suggested. RECOMMENDATION: Targeted right breast ultrasound in 6 Thank you for allowing us to participate in the care of your patient. [facility] utilizes [employer] as a reminder system to notify patients of their next recommended mammogram. Genevieve Gtz MD US ORDERAB LES * (ABNORMAL) NAEL DIAG DIRECT DIGITAL IMAGE UNI RIGHT [id number] (11/06/2013 10:52 AM CDT) Only the most recent of3 resultswithin the time period is included. Anatomical Region Laterality Modality Right Mammography 11/06/2013 11:3 2 AM CDT Narrative 11/06/2013 11:37 AM CDT EXAMINATION: Right digital diagnostic mammogram and ultrasound on 11/06/13 INDICATION: Short-term followup nodularity FINDINGS: Computer assisted detection was utilized. The tissue is heterogeneously dense which may obscure small masses. Comparison is made with prior studies back to May 2012. Parenchymal pattern is stable. Ultrasound of the right breast demonstrates multiple scattered cysts some of which contain debris. The solid appearing hypoechoic nodule behind the nipple has increased in size in the transverse dimension now measuring up to 2.3 cm. Its margins remain smooth and it is parallel to the skin surface. Targeted ultrasound is recommended at the time of the patient's bilateral mammogram which can be a screening study. ASSESSMENT: BIRADS Category 3: Probably benign finding. Short interval follow up suggested.. RECOMMENDATION: Right breast ultrasound at the time of patient's screening mammogram in May 2014. Procedure Note Tash Thomas MD - 11/06/2013 EXAMINATION: Right digital diagnostic mammogram and ultrasound on 11/06/13 INDICATION: Short-term followup nodularity FINDINGS: Computer assisted detection was utilized. The tissue is heterogeneously dense which may obscure small masses. Comparison is made with prior studies back to May 2012. Parenchymal pattern is stable. Ultrasound of the right breast demonstrates multiple scattered cysts some of which contain debris. The solid appearing hypoechoic nodule behind the nipple has increased in size in the transverse dimension now measuring up to 2.3 cm. Its margins remain smooth and it is parallel to the skin surface. Targeted ultrasound is recommended at the time of the patient's bilateral mammogram which can be a screening study. ASSESSMENT: BIRADS Category 3: Probably benign finding. Short interval follow up suggested.. RECOMMENDATION: Right breast ultrasound at the time of patient's screening mammogram in May 2014. Mercy Macias MD MAMMO ORDERABLES * PAP IG REFLX HPV ALL PTH (PO REF LAB) (05/11/2013 9:39 AM CDT) Only the most recent of4 resultswithin the time period is included. Diagnosis [facility] INSURANCE BILL Comment:NEGATIVE FOR INTRAEP ITHELIAL LESION AND MALIGNANCY. Specimen Adequacy [facility] INSURANCE BILL Comment: Satisfactory for evaluation. Endocervical and/or squamous metaplastic cells (endocervical component) are present. Clinician Provided ICD9 [facility] INSURANCE BILL Comment:V72.31 ; Routine dog hair clipper ecological examination Performed by [employer] INSURANCE BILL Comment:Sandro Oseguera, Cytot echnologist (ASCP) Comment . [facility] INSURANCE BILL Note [facility] INSURANCE BILL Comment: The Pap smear is a screening test designed to aid in the detection of premalignant and malignant conditions of the uterine cervix. It is not a diagnostic procedure and should not be used as the sole means of detecting cervical cancer. Both false-positive and false-negative reports do occur. . [facility] CPT Code Automation [facility] INSURANCE BILL Comment: This liquid based ThinPrep(R) pap test was screened with the use of an image guided system. Note [facility] INSURANCE BILL Comment: The HPV DNA reflex criteria were not met with this specimen result therefore, no HPV testing was performed. . MICROSCOPIC CYTOLOGIC EXAMINATION OF SMEAR OF SPECIMEN FROM FEMALE GENITAL TRACT PREPARED USING PAPANICOLAOU TECHNIQUE / Unknown 05/11/2013 9:39 AM CDT 05/12/2013 2:36 AM CDT Narrative [facility] INSURANCE BILL - 05/15/2013 2:18 PM CDT No. of containers..01 CYTYC Thin Prep Vial Resulting Agency Comment [facility] Gino Mccurdy [id number] Flex Agustin MD LAB - PATHOLOGY/CYTO LOGY ORDERABLES [facility] INSURANCE BILL * US BREAST BILATERAL (05/04/2013 10:53 AM CDT) Anatomical Region Laterality Modality Breast Bilateral Ultrasound 05/04/2013 11:0 5 AM CDT Narrative 05/04/2013 11:12 AM CDT EXAMINATION: Bilateral digital diagnostic mammogram and ultrasound on May 04, 2013 INDICATION: Nodular densities on prior mammography FINDINGS: Computer assisted detection was utilized. Tissue density is heterogeneously dense. There are nodular densities seen bilaterally. The left breast demonstrates a well demarcated nodular density in the upper-outer left breast approximately 2.5 cm posterior to the nipple. This is in the approximate 3:00 position. There are small nodular densities immediately posterior to the nipple.] 3 demonstrates nodular densities in the inferior right breast with a Sim calcifications. These are relatively unchanged. Bilateral sonographic evaluation: -In the left breast at 3:00 1 cm from the nipple there is an ovoid, wider than tall, 11 x 9 x 6 no major cystic lesion with increased through transmission and no Doppler flow. -In the left breast just posterior to the nipple there is a lobulated anechoic area measuring 8 x 6 x 5 mm with increased through transmission and no Doppler flow. -Within the right breast at 5:00, 4 cm from the nipple, there is a mixed hypoechoic lesion measuring 6 x 6 x 5 mm which is relatively unchanged with increased through transmission and no Doppler flow likely representing cyst with debris. -In the right breast at 6:00 approximately 3 cm from the nipple, there is a 6 x 4 x 4 mm hypoechoic lesion without Doppler flow is relatively unchanged. -Just posterior to the nipple in the right breast there is a 14 x 16 x 6 mm ovoid area of hypoechogenicity without Doppler flow. This is minimally changed in measurement from prior evaluation. Bilateral simple appearing cysts with the exception of hypoechogenicity posterior to the right nipple which may represent a debris filled cyst or proteinaceous cyst. ASSESSMENT: BIRADS Category 3: Probably benign finding. Short interval follow up suggested.. RECOMMENDATION: 6 month followup right breast mammogram and potential sonography for nodular density posterior to the right nipple. [facility] utilizes [employer] as a reminder system to notify patients of their next recommended mammogram. Procedure Note Sherman Mccord MD - 05/04/2013 EXAMINATION: Bilateral digital diagnostic mammogram and ultrasound on May 04, 2013 INDICATION: Nodular densities on prior mammography FINDINGS: Computer assisted detection was utilized. Tissue density is heterogeneously dense. There are nodular densities seen bilaterally. The left breast demonstrates a well demarcated nodular density in the upper-outer left breast approximately 2.5 cm posterior to the nipple. This is in the approximate 3:00 position. There are small nodular densities immediately posterior to the nipple.] 3 demonstrates nodular densities in the inferior right breast with a Sim calcifications. These are relatively unchanged. Bilateral sonographic evaluation: -In the left breast at 3:00 1 cm from the nipple there is an ovoid, wider than tall, 11 x 9 x 6 no major cystic lesion with increased through transmission and no Doppler flow. -In the left breast just posterior to the nipple there is a lobulated anechoic area measuring 8 x 6 x 5 mm with increased through transmission and no Doppler flow. -Within the right breast at 5:00, 4 cm from the nipple, there is a mixed hypoechoic lesion measuring 6 x 6 x 5 mm which is relatively unchanged with increased through transmission and no Doppler flow likely representing cyst with debris. -In the right breast at 6:00 approximately 3 cm from the nipple, there is a 6 x 4 x 4 mm hypoechoic lesion without Doppler flow is relatively unchanged. -Just posterior to the nipple in the right breast there is a 14 x 16 x 6 mm ovoid area of hypoechogenicity without Doppler flow. This is minimally changed in measurement from prior evaluation. Bilateral simple appearing cysts with the exception of hypoechogenicity posterior to the right nipple which may represent a debris filled cyst or proteinaceous cyst. ASSESSMENT: BIRADS Category 3: Probably benign finding. Short interval follow up suggested.. RECOMMENDATION: 6 month followup right breast mammogram and potential sonography for nodular density posterior to the right nipple. [facility] utilizes GutCheck as a reminder system to notify patients of their next recommended mammogram. Mercy Macias MD US ORDERABLES * (ABNORMAL) NAEL DIAG DIRECT DIG IMAGE BILATERAL G0204 (05/04/2013 10:31 AM CDT) Only the most recent of2 resultswithin the time period is included. Anatomical Region Laterality Modality Bilateral Mammography 05/04/2013 11:0 5 AM CDT Narrative 05/04/2013 11:12 AM CDT EXAMINATION: Bilateral digital diagnostic mammogram and ultrasound on May 04, 2013 INDICATION: Nodular densities on prior mammography FINDINGS: Computer assisted detection was utilized. Tissue density is heterogeneously dense. There are nodular densities seen bilaterally. The left breast demonstrates a well demarcated nodular density in the upper-outer left breast approximately 2.5 cm posterior to the nipple. This is in the approximate 3:00 position. There are small nodular densities immediately posterior to the nipple.] 3 demonstrates nodular densities in the inferior right breast with a Sim calcifications. These are relatively unchanged. Bilateral sonographic evaluation: -In the left breast at 3:00 1 cm from the nipple there is an ovoid, wider than tall, 11 x 9 x 6 no major cystic lesion with increased through transmission and no Doppler flow. -In the left breast just posterior to the nipple there is a lobulated anechoic area measuring 8 x 6 x 5 mm with increased through transmission and no Doppler flow. -Within the right breast at 5:00, 4 cm from the nipple, there is a mixed hypoechoic lesion measuring 6 x 6 x 5 mm which is relatively unchanged with increased through transmission and no Doppler flow likely representing cyst with debris. -In the right breast at 6:00 approximately 3 cm from the nipple, there is a 6 x 4 x 4 mm hypoechoic lesion without Doppler flow is relatively unchanged. -Just posterior to the nipple in the right breast there is a 14 x 16 x 6 mm ovoid area of hypoechogenicity without Doppler flow. This is minimally changed in measurement from prior evaluation. Bilateral simple appearing cysts with the exception of hypoechogenicity posterior to the right nipple which may represent a debris filled cyst or proteinaceous cyst. ASSESSMENT: BIRADS Category 3: Probably benign finding. Short interval follow up suggested.. RECOMMENDATION: 6 month followup right breast mammogram and potential sonography for nodular density posterior to the right nipple. [facility] utilizes GutCheck as a reminder system to notify patients of their next recommended mammogram. Procedure Note Sherman Mccord MD - 05/04/2013 EXAMINATION: Bilateral digital diagnostic mammogram and ultrasound on May 04, 2013 INDICATION: Nodular densities on prior mammography FINDINGS: Computer assisted detection was utilized. Tissue density is heterogeneously dense. There are nodular densities seen bilaterally. The left breast demonstrates a well demarcated nodular density in the upper-outer left breast approximately 2.5 cm posterior to the nipple. This is in the approximate 3:00 position. There are small nodular densities immediately posterior to the nipple.] 3 demonstrates nodular densities in the inferior right breast with a Sim calcifications. These are relatively unchanged. Bilateral sonographic evaluation: -In the left breast at 3:00 1 cm from the nipple there is an ovoid, wider than tall, 11 x 9 x 6 no major cystic lesion with increased through transmission and no Doppler flow. -In the left breast just posterior to the nipple there is a lobulated anechoic area measuring 8 x 6 x 5 mm with increased through transmission and no Doppler flow. -Within the right breast at 5:00, 4 cm from the nipple, there is a mixed hypoechoic lesion measuring 6 x 6 x 5 mm which is relatively unchanged with increased through transmission and no Doppler flow likely representing cyst with debris. -In the right breast at 6:00 approximately 3 cm from the nipple, there is a 6 x 4 x 4 mm hypoechoic lesion without Doppler flow is relatively unchanged. -Just posterior to the nipple in the right breast there is a 14 x 16 x 6 mm ovoid area of hypoechogenicity without Doppler flow. This is minimally changed in measurement from prior evaluation. Bilateral simple appearing cysts with the exception of hypoechogenicity posterior to the right nipple which may represent a debris filled cyst or proteinaceous cyst. ASSESSMENT: BIRADS Category 3: Probably benign finding. Short interval follow up suggested.. RECOMMENDATION: 6 month followup right breast mammogram and potential sonography for nodular density posterior to the right nipple. [facility] utilizes GutCheck as a reminder system to notify patients of their next recommended mammogram. Mercy Macias MD MAMMO ORDERABLES * IMAGING/RADIOLOGY/XRAY RESULTS ORDER (09/03/2009) Anatomical Region Laterality Modality Other Mercy Macias MD IMAGING * CYTOLOGY CERVICAL/VAG SCREEN THIN PREP (07/12/2008 12:37 PM CANDY CUTTER MACHINE) Report Status FINAL QUEST Clinical Information SEE NOTE QUEST Comment:Routine exam Ultrasound Date SEE NOTE QUEST Comment:06/26/08 Previous Pap SEE NOTE QUEST Comment:INFORMATION NOT PROV IDED Prev. BX SEE NOTE QUEST Comment:INFORMATION NOT PROV IDED Source SEE NOTE QUEST Comment:Information not prov ided Statement of Adequacy SEE NOTE QUEST Comment: Satisfactory for evaluation. Endocervical/transformation zone component present. Interpretation/Resul t SEE NOTE QUEST Comment:Negative for intraep ithelial lesion or malignancy. Comment SEE NOTE QUEST Comment: This Pap test has been evaluated with computer assisted technology. Based on the cytology result, reflex High Risk HPV DNA testing was not performed. Jewel Hole Finish Opener SEE NOTE QUEST Comment: FIGUEROA, CT(ASCP) Test Performed at: [employer] [facility] [address] [place] [address] MONSE VERA MD 07/12/2008 12:3 7 PM CANDY CUTTER MACHINE 07/12/2008 12:38 PM CANDY CUTTER MACHINE Flex Agustin MD LAB - PATHOLOGY/CYTO LOGY ORDERABLES [facility] [address] [place] [address] Care Teams Field Services Analyst Relationship Specialty Start Date End Date Sam Sagastume MD [address] [place] [address] PCP - General Family Medicine 12/20/19
--- OUTSIDE RECORDS SUMMARY | 2024-09-14 09:16 | XMS_ITS | Clinical Summary ---
Author Organization [facility] Address [address] [facility] [place] [address] Care Team Providers Care Pediatrics Teacher Name Role Phone Sam Sagastume MD Primary Care Provider [phone] Source Comments [facility],non-owned Affiliates and Associated Physician Practices is amultiple site organization consisting of ambulatory clinics and hospital sitesin [place], [place], [place] and [place]. This disclosure is being madepursuant to the Care Everywhere program and may not contain all information available regarding this patient. Last updated 18.[facility] Allergies No known active allergies Medications * Be aware that medications may not be up to date on this document. Alwaysverify current medications with the patient. Medication Sig Dispensed Refills Start Date End Date Status fluticasone propionate (FLONASE) 50 MCG/ACT nasal spray 11/20/2011 Active venlafaxine XR 24hr (EFFEXOR XR) 75 MG capsule Take 75 mg by mouth 3 times daily 05/24/2015 Active estradiol (VAGIFEM) 10 MCG vaginal tablet Insert 1 Tab into the vagina every Wednesday, Wednesday, & Wednesday 16 Tab 8 08/29/2015 Active Active Problems Problem Noted Date Diagnosed Date R Breast density 05/26/2012 Overview (05/26/2012): Dr Macias managing Female Stress Incontinence, when sneeze 08/12/19 10 Encounter for health-related screening 8 Overview (10/30/2017): Last PAP 05/11/13: normal --> Repeat 201505/08/2015: MMG BIRADS-2; req addl imagin 01/2013: Colonoscopy --> Repeat 2022 IMO update 10 31 2017 Family History Medical History Relation Name Comments Cancer - Colon Maternal Grandfather Cancer Paternal Grandfather brain Heart Disease Paternal Grandfather Osteoporosis Paternal Grandmother no hip fx Cancer - Breast Neg Hx Cancer - Ovarian Neg Hx Relation Name Status Comments Father Alive Maternal Grandfather Mother Alive Paternal Grandfather Paternal Grandmother Sister Alive Social History Tobacco Use Types Packs/Day Years [...] Comments Blood Pressure 120/74 06/03/2015 9:39 AM INSTRUCTIONAL SUPPORT TECHNICIAN Pulse - - Temperature - - Respiratory Rate - - Oxygen Saturation - - Inhaled Oxygen Concentration - - Weight 62.1 kg (137 lb) 06/03/2015 9:39 AM INSTRUCTIONAL SUPPORT TECHNICIAN Height 168.9 cm (5' 6.5 ) 06/03/2015 9:39 AM INSTRUCTIONAL SUPPORT TECHNICIAN Body Mass Index 21.78 06/03/2015 9:39 AM INSTRUCTIONAL SUPPORT TECHNICIAN Plan of Treatment Health Maintenance Due Date Last Done Comments COLOGUARD (AGES 45-75) - COLON CA SCREENING [address] COLONOGRAPHY - COLON CA SCREENING 1961 FIT - COLON CA SCREENING 1961 FLEX SIG - COLON CA SCREENING 1961 LIPID TESTING 1961 HIV SCREENING 1976 HEPATITIS C SCREENING 04/15/1979 DTAP/TDAP/TD VACCINES (1 - Tdap) 1980 PNEUMOCOCCAL VACCINE 50+ (1 of 1 - PCV) 2011 ZOSTER VACCINE (1 of 2) 2011 PAP SMEAR 05/11/2014 05/11/2013, 04/02, 12/26/2010, Additional history exists MAMMOGRAM 06/22/2021 12/20/2020, 12/01, 11/04/2018, Additional history exists COLONOSCOPY - COLON CA SCREENING 01/30/2023 01/30/2013 Colorectal Cancer Screening 01/30/2023 COVID-19 VACCINE ( season) 2024 INFLUENZA VACCINE (#1) 2024 DEPRESSION SCREENING 08/02/2024 Respiratory Syncytial Virus (RSV) Vaccine Pt: or over 60 yrs (1 - 1-dose 75+ series) 2036 HEPATITIS B VACCINE Aged Out No longe r eligible based on patient's age to complete this topic HIB VACCINE Aged Out No longer eligi ble based on patient's age to complete this topic HPV VACCINE Aged Out No longer eligi ble based on patient's age to complete this topic MENINGOCOCCAL (Group B) VACCINE Aged Out No longer eligible based on patient's age to complete this topic MENINGOCOCCAL VACCINE Aged Out No enrique juan eligible based on patient's age to complete this topic PNEUMOCOCCAL VACCINE Aged Out No long er eligible based on patient's age to complete this topic Procedures Procedure Name Priority Date/Time Associated Diagnosis Comments MAMMO BILAT SCREENING Routine 12/20/2020 9:55 AM CDT Visit for screening mammogram PAP IG LB RFLX HPV HR ALL Routine 05/11/2013 9:39 AM CDT Routine gynecological examination from Last 3 Months or Most Recently Relevant to Health Maintenance Results * MAMMO BILAT SCREENING (12/20/2020 9:55 AM CDT) Anatomical Region Laterality Modality Breast Bilateral Mammography [...] breast. Sam Sagastume MD MAMMO ORDERABLES * PAP IG REFLX HPV ALL PTH (PO REF LAB) (05/11/2013 9:39 AM CDT) Diagnosis [facility] INSURANCE BILL Comment:NEGATIVE FOR INTRAEP ITHELIAL LESION AND MALIGNANCY. Specimen Adequacy [facility] INSURANCE BILL Comment: Satisfactory for evaluation. Endocervical and/or squamous metaplastic cells (endocervical component) are present. Clinician Provided ICD9 [facility] INSURANCE BILL Comment:V72.31 ; Routine advanced research programs director ecological examination Performed by [facility] INSURANCE BILL Comment:Sandro Oseguera, Cytot echnologist (ASCP) Comment . [facility] INSURANCE BILL Note [facility] INSURANCE BILL Comment: The Pap smear is a screening test designed to aid in the detection of premalignant and malignant conditions of the uterine cervix. It is not a diagnostic procedure and should not be used as the sole means of detecting cervical cancer. Both false-positive and false-negative reports do occur. . [facility] CPT Code Automation [facility] INSURANCE BILL Comment: This liquid based ThinPrep(R) pap test was screened with the use of an image guided system. Note [facility] INSURANCE BILL Comment: The HPV DNA reflex [...] CYTYC Thin Prep Vial Resulting Agency Comment [address] [place] [id number] Flex Agustin MD LAB - PATHOLOGY/CYTO LOGY ORDERABLES [facility] INSURANCE BILL from Last 3 Months or Most Recently Relevant to Health Maintenance Care Teams Pediatrics Teacher Relationship Specialty Start Date End Date Sam Sagastume MD [address] [place] [address] PCP - General Family Medicine 12/20/19
--- OUTSIDE RECORDS SUMMARY | 2024-09-14 09:16 | XMS_ITS | Encounter Summary ---
Author Organization [facility] Address [address] [facility] [place] [address] Care Team Providers Care Leaf Sticker Name Role Phone Sam Sagastume MD Primary Care Provider [phone] Encounter Details Date Type Department Care Team (Late st Contact Info) Description 07/02/2020 Lab Requisition [facility] Care Derm[facility] Lab [address] [facility] [place] [address] Byron Boothe MD [address] [place] [address] Social History Tobacco Use Types Packs/Day Years Used Date Smoking Tobacco: Never Smokeless Tobacco: Never Alcohol Use Standard Drinks/Week Comments Yes 0 (1 standard drink = 0.6 oz pur e alcohol) casual Sex and Gender Information Value Date Recorded Sex Assigned at Not on file Gender Identity Not on file Sexual Orientation Not on file documented as of this encounter Plan of Treatment Not on file documented as of this encounter Procedures Procedure Name Priority Date/Time Associated Diagnosis Comments DERMATOPATHOLOGY Routine 07/01/2020 12:0 0 AM SPORTS LEADERSHIP INSTRUCTOR documented in this encounter Results * DERMATOPATHOLOGY (07/01/2020 12:00 AM SPORTS LEADERSHIP INSTRUCTOR) Case Report Dermatopathology Report Case: [id number] Authorizing Provider: Byron Boothe MD Collected: 07/01/2020 12:00 AM Ordering Location: [facility] Received: 07/02/2020 05:41 AM Pathologist: Milagro French MD Specimen: Skin, left ant tibia 0 1:22 PM SPORTS LEADERSHIP INSTRUCTOR DERMATOPATHOLOGY LABORATORY Final Diagnosis Specimen A. SKIN, left ant tibia: DERMAL SCAR RESIDUAL SQUAMOUS CELL CARCINOMA NOT IDENTIFIED (L90.5) 0 1:22 PM SPORTS LEADERSHIP INSTRUCTOR DERMATOPATHOLOGY LABORATORY Clinical History Bx proven SCC. Previous Bx: [id number]. 0 1:22 PM SPORTS LEADERSHIP INSTRUCTOR DERMATOPATHOLOGY LABORATORY Gross Description Specimen A: Received is one formalin filled container labeled with the patient's name and designated left ant tibia. The specimen consists of a curettage and desiccation biopsy measuring [id number]. Jar 0. 0 1:22 PM SPORTS LEADERSHIP INSTRUCTOR DERMATOPATHOLOGY LABORATORY Microscopic Description Specimen A. SKIN, left ant tibia: There are fibroblasts and collagen bundles oriented parallel to the skin surface. There are elongated blood vessels, some of which are oriented perpendicular to the skin surface. No residual squamous cell carcinoma is identified. 0 1:22 PM SPORTS LEADERSHIP INSTRUCTOR DERMATOPATHOLOGY LABORATORY Disclaimer An external and internal positive and negative controls are appropriate for the histochemical, immunohistochemical and immunofluorescence stain(s) in this case (if any), except where stated explicitly. The performance characteristics of the stain(s) cited in this report were developed and its performance characteristic determined by the Dermatopathology Laboratory at [facility], directed by Dr. Mandy Neal. These tests need not be, and therefore are not, approved by the [place] Food and Drug Administration. The tests are used for clinical purposes. Billing Codes Specimen Charges Stain Charges 49115 1 0 1:22 PM SPORTS LEADERSHIP INSTRUCTOR DERMATOPATHOLOGY LABORATORY Embedded Images 0 1:22 PM SPORTS LEADERSHIP INSTRUCTOR DERMATOPATHOLOGY LABORATORY Pathology/Cytolog y TISSUE SPECIMEN FROM SKIN / Unknown 07/01/2020 07/02/2020 5:41 AM SPORTS LEADERSHIP INSTRUCTOR Byron Boothe MD LAB - PATHOLOGY/CYTO LOGY ORDERABLES DERMATOPATHOLOGY LABORATORY [facility] - Department of Dermatology [address] [phone] documented in this encounter Visit Diagnoses Not on filedocumented in this encounter Care Teams Leaf Sticker Relationship Specialty Start Date End Date Sam Sagastume MD [address] [place] [address] PCP - General Family Medicine 12/20/19 documented as of this encounter
--- OUTSIDE RECORDS SUMMARY | 2024-09-14 09:16 | XMS_ITS | Encounter Summary ---
Author Organization [facility] Address [address] [facility] [place] [address] Care Team Providers Care Clinical Data Assistant Name Role Phone Sam Sagastume MD Primary Care Provider [phone] Encounter Details Date Type Department Care Team (Late st Contact Info) Description 06/13/2020 Lab Requisition [facility] Care DermPath Lab [address] [facility] [place] [address] Byron Boothe MD [address] [place] [address] Social History Tobacco Use Types [...] Priority Date/Time Associated Diagnosis Comments DERMATOPATHOLOGY Routine 06/12/2020 12:0 0 AM JUVENILE COUNSELOR documented in this encounter Results * DERMATOPATHOLOGY (06/12/2020 12:00 AM JUVENILE COUNSELOR) Case Report Dermatopathology Report Case: [id number] Authorizing Provider: Byron Boothe MD Collected: 06/12/2020 12:00 AM Ordering Location: [facility] Received: 06/13/2020 07:00 AM Pathologist: Kimberlyn Foss MD Specimen: Skin, left ant tibia 0 2:41 PM [facility] DERMATOPATHOLOGY LABORATORY Final Diagnosis Specimen A. SKIN, left ant tibia: SQUAMOUS CELL CARCINOMA, WELL DIFFERENTIATED (C44.729) 0 2:41 PM JUVENILE COUNSELOR DERMATOPATHOLOGY LABORATORY Clinical History R/O SCC. 0 2:41 PM JUVENILE COUNSELOR DERMATOPATHOLOGY LABORATORY Gross Description Specimen A: Received is one formalin filled container labeled with the patient's name and designated left ant tibia. The specimen consists of a shave biopsy measuring [id number]. Jar 0. 0 2:41 PM JUVENILE COUNSELOR DERMATOPATHOLOGY LABORATORY Microscopic Description Specimen A. SKIN, left ant tibia: Arising in the epidermis and extending into the dermis there are irregularly shaped aggregates of keratinocytes showing evidence of premature cornification. 0 2:41 PM JUVENILE COUNSELOR DERMATOPATHOLOGY LABORATORY Disclaimer An external and internal positive and negative controls are appropriate for the histochemical, immunohistochemical and immunofluorescence stain(s) in this case (if any), except where stated explicitly. The performance characteristics of the stain(s) cited in this report were developed and its performance characteristic determined by the Dermatopathology Laboratory at [facility], directed by Dr. Mandy Neal. These tests need not be, and therefore are not, approved by the [place] Food and Drug Administration. The tests are used for clinical purposes. Billing Codes Specimen Charges Stain Charges 83523 1 0 2:41 PM JUVENILE COUNSELOR DERMATOPATHOLOGY LABORATORY Embedded Images 0 2:41 PM JUVENILE COUNSELOR DERMATOPATHOLOGY LABORATORY Pathology/Cytolog y TISSUE SPECIMEN FROM SKIN / Unknown 06/12/2020 06/13/2020 7:00 AM JUVENILE COUNSELOR Byron Boothe MD LAB - PATHOLOGY/CYTO LOGY ORDERABLES DERMATOPATHOLOGY LABORATORY [facility] - Department of Dermatology [address] [phone] documented in this encounter Visit Diagnoses Not on filedocumented in this encounter Care Teams Clinical Data Assistant Relationship Specialty Start Date End Date Sam Sagastume MD [address] [facility] [address] [address] PCP - General Family Medicine 12/20/19 documented as of this encounter
--- OUTSIDE RECORDS SUMMARY | 2024-09-14 09:16 | XMS_ITS | Referral Summary ---
Author Organization [facility] [employer] Address [address] [place] [address] Care Team Providers Care Keno Clerk Name Role Phone Sam Sagastume MD Primary Care Provider [phone] Source Comments [facility] [employer],non-owned Affiliates and Associated Physician Practices is amultiple site organization consisting of ambulatory clinics and hospital sitesin [place], [place], [place] and [place]. This disclosure is being madepursuant to the Care Everywhere program and may not contain all information available regarding this patient. Last updated 18.[facility] [employer] Allergies No known active allergies Medications * [...] (10/30/2017): Last PAP 05/11/13: normal --> Repeat 2016 05/08/2015: [facility] BIRADS-2; req addl imagin 01/2013: Colonoscopy --> Repeat 2022 IMO update 10 31 2017 Social History Tobacco Use Types Packs/Day Years [...] Comments Blood Pressure 120/74 06/03/2015 9:39 AM MANAGER ORGANIZATIONAL Pulse - - Temperature - - Respiratory Rate - - Oxygen Saturation - - Inhaled Oxygen Concentration - - Weight 62.1 kg (137 lb) 06/03/2015 9:39 AM MANAGER ORGANIZATIONAL Height 168.9 cm (5' 6.5 ) 06/03/2015 9:39 AM MANAGER ORGANIZATIONAL Body Mass Index 21.78 06/03/2015 9:39 AM MANAGER ORGANIZATIONAL Plan of Treatment Not on file Procedures Procedure Name Priority Date/Time Associated Diagnosis [...] REF LAB) (05/11/2013 9:39 AM CDT) Diagnosis [facility] INSURANCE BILL Comment:NEGATIVE FOR INTRAEP ITHELIAL LESION AND MALIGNANCY. Specimen Adequacy [facility] INSURANCE BILL Comment: Satisfactory for evaluation. Endocervical and/or squamous metaplastic cells (endocervical component) are present. Clinician Provided ICD9 [facility] INSURANCE BILL Comment:V72.31 ; Routine vp product marketing ecological examination Performed by [facility] INSURANCE BILL Comment:Sandro Oseguera, Cytot echnologist (ASCP) Comment . [facility] INSURANCE BILL Note [facility] INSURANCE BILL Comment: The Pap smear is a screening test designed to aid in the detection of premalignant and malignant conditions of the uterine cervix. It is not a diagnostic procedure and should not be used as the sole means of detecting cervical cancer. Both false-positive and false-negative reports do occur. . IGLBP CPT Code Automation [facility] INSURANCE BILL Comment: This liquid based ThinPrep(R) pap test was screened with the use of an image guided system. Note [facility] INSURANCE BILL Comment: The HPV DNA reflex criteria were not met with this specimen result therefore, no HPV testing was performed. . MICROSCOPIC CYTOLOGIC EXAMINATION OF SMEAR OF SPECIMEN FROM FEMALE GENITAL TRACT PREPARED USING PAPANICOLAOU TECHNIQUE / Unknown 05/11/2013 9:39 AM CDT 05/12/2013 2:36 AM CDT Narrative [facility] INSURANCE BILL - 05/15/2013 2:18 PM CDT No. of containers..01 CYTYC Thin Prep Vial Resulting Agency Comment [address] [phone] Flex Agustin MD LAB - PATHOLOGY/CYTO LOGY ORDERABLES [facility] INSURANCE BILL from Last 3 Months or Most Recently Relevant to Health Maintenance Care Teams Keno Clerk Relationship Specialty Start Date End Date Sam Sagastume MD [address] [place], [place] [id number] PCP - General Family Medicine 12/20/19
--- OUTSIDE RECORDS SUMMARY | 2024-09-14 09:16 | XMS_ITS | Encounter Summary ---
Author Organization [facility] Address [address] [place] [address] Care Team Providers Care Second Class Welder Name Role Phone Sam Sagastume MD Primary Care Provider [phone] Encounter Details Date Type Department Care Team (Late st Contact Info) Description 09/09/2023 Lab Requisition [facility] - DermPath Lab [address] [facility] [place] [id number] Byron Boothe MD [address] [place] [address] Social History Tobacco Use Types [...] Priority Date/Time Associated Diagnosis Comments DERMATOPATHOLOGY Routine 09/08/2023 3:33 AM ENGINE RESEARCH ENGINEER documented in this encounter Results * DERMATOPATHOLOGY (09/08/2023 3:33 AM ENGINE RESEARCH ENGINEER) Case Report Dermatopathology Report Case: [id number] Authorizing Provider: Byron Boothe MD Collected: 09/08/2023 03:33 AM Ordering Location: [facility] DermPath Lab Received: 09/09/2023 07:43 AM Pathologist: Rosibel Foss MD Specimen: Skin, right 3rd finger periungual 4:48 PM [facility] DERMATOPATHOLOGY LABORATORY Final Diagnosis Specimen A. 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 The specimen consists of a shave removal measuring 6x4x1 mm. Jar 0. 4:48 PM [facility] DERMATOPATHOLOGY LABORATORY Microscopic Description Specimen A. SKIN, right 3rd finger periungual: Sections show acral skin with mucin in pools trapped within the cornified layer. There is also mucinous degeneration of the superficial dermis with minimal inflammation. 4:48 PM [facility] DERMATOPATHOLOGY LABORATORY Disclaimer An external and [...] purposes. Billing Codes Specimen Charges Stain Charges 06295 1 4:48 PM ENGINE RESEARCH ENGINEER DERMATOPATHOLOGY LABORATORY Embedded Images 4:48 PM [facility] DERMATOPATHOLOGY LABORATORY Pathology/Cytolo gy TISSUE SPECIMEN FROM SKIN / Unknown 09/08/2023 3:33 AM ENGINE RESEARCH ENGINEER 09/09/2023 7:43 AM ENGINE RESEARCH ENGINEER Byron Boothe MD LAB - PATHOLOGY/CYTO LOGY ORDERABLES DERMATOPATHOLOGY LABORATORY [facility] - Department of Dermatology [address] [place] [address], [facility] [phone] documented in this encounter Visit Diagnoses Not on filedocumented in this encounter Care Teams Second Class Welder Relationship Specialty Start Date End Date Sam Sagastume MD [address] [facility] [address] [address] PCP - General Family Medicine 12/20/19 documented as of this encounter
== END 2024-09-14 08:59 | disposition home or self-care (01) ==
PROVIDERS: PCP Family Medicine; Visit Provider Obstetrics & Gynecology Gynecology
DX: Z78.0 Asymptomatic menopausal state (principal); M81.0 Age-related osteoporosis without current pathological fracture; M85.852 Other specified disorders of bone density and structure, left thigh; M85.851 Other specified disorders of bone density and structure, right thigh
CPT/HCPCS: 77080

== ENCOUNTER 2024-10-13 13:02 | Outpatient (CLI) | payer BC, SELFPAY ==
--- NOTE | ~2024-10-13 | XR_ITS ---
3 VIEWS LUMBAR SPINE Ordering provider: Kamran Tiwari MD History: . Age-related osteoporosis without current pathological fractu . Comparison: None. FINDINGS: VERTEBRAL BODIES: No visible fracture or subluxation. Degenerative changes of the spine. DISK SPACES: Narrowing of the disc L4-L5. Multilevel facet joint disease. SOFT TISSUES: Normal. IMPRESSION: No acute osseous abnormality lumbar spine. Degenerative disc disease at the level of L4-L5. Reviewed, dictated and finalized at location A.
== END 2024-10-13 13:03 | disposition home or self-care (01) ==
LOC: MICIMG 13:04
PROVIDERS: PCP Family Medicine; Visit Provider Internal Medicine
DX: M81.0 Age-related osteoporosis without current pathological fracture (principal); M51.369 Other intervertebral disc degeneration, lumbar region without mention of lumbar back pain or lower extremity pain
CPT/HCPCS: 72110

== ENCOUNTER 2025-05-02 08:18 | Outpatient (CLI) | payer BC, SELFPAY ==
--- NOTE | ~2025-05-02 | MM_ITS ---
EXAMINATION: MM screening marina BI w brittany HISTORY: Screening TECHNIQUE: Craniocaudal and mediolateral oblique 3-D tomosynthesis images were obtained and synthetic 2-D images were generated. CAD analysis was submitted and interpreted. COMPARISON: Comparison to multiple prior studies sequentially, with oldest reviewed study dated 12/23/2019. BREAST PARENCHYMAL COMPOSITION: Not dense: There are scattered areas of fibroglandular density. FINDINGS: There is a small new mass in the lower inner quadrant of the right breast, anterior third. There is a new focal asymmetry in the upper outer quadrant of the left breast, middle third. IMPRESSION: 1. New right breast mass. New left breast asymmetry. 2. Additional mammographic views and possible breast ultrasound are recommended. BI-RADS Category 0: Incomplete: Needs additional imaging evaluation. Reviewed, dictated and finalized at location B. IMPRESSION: 1. New right breast mass. New left breast asymmetry. 2. Additional mammographic views and possible breast ultrasound are recommended . BI-RADS Category 0: Incomplete: Needs additional imaging evaluation.
--- OUTSIDE RECORDS SUMMARY | 2025-05-02 08:27 | XMS_ITS | Encounter Summary ---
Author Organization [facility] Address [address] [facility] [place] [address] Care Team Providers Care Christmas Tree Farm Crew Boss Name Role Phone Sam Sagastume MD Primary Care Provider [phone] Encounter Details Date Type Department Care Team (Late st Contact Info) Description 07/02/2020 Lab Requisition [facility] [address] [facility], [place] [address] Byron Boothe MD [address] [place] [address] Social History Tobacco Use Types Packs/Day Years Used Date Smoking Tobacco: Never Smokeless Tobacco: Never Alcohol Use Standard Drinks/Week Comments Yes 0 (1 standard drink = 0.6 oz pur e alcohol) casual Comments No Sex and Gender Information Value Date Recorded Sex Assigned at Not on file Legal Sex Female 6:22 AM WATER METER READER Gender Identity Not on file Sexual Orientation Not on file documented as of this encounter Plan of Treatment Not on file documented as of this encounter Procedures Procedure Name Priority Date/Time Associated Diagnosis Comments DERMATOPATHOLOGY Routine 07/01/2020 12:0 0 AM WATER METER READER documented in this encounter Results * DERMATOPATHOLOGY (07/01/2020 12:00 AM WATER METER READER) Case Report Dermatopathology Report Case: [id number] Authorizing Provider: Byron Boothe MD Collected: 07/01/2020 12:00 AM Ordering Location: [facility] DermPath Lab Received: 07/02/2020 05:41 AM Pathologist: Milagro French MD Specimen: Skin, left ant tibia 0 1:22 PM [facility] DERMATOPATHOLOGY LABORATORY Final Diagnosis Specimen A. SKIN, left ant tibia: DERMAL SCAR RESIDUAL SQUAMOUS CELL CARCINOMA NOT IDENTIFIED (L90.5) 0 1:22 PM [facility] DERMATOPATHOLOGY LABORATORY at [address] WATER METER READER Clinical History Bx proven SCC. Previous Bx: [id number]. 0 1:22 PM [facility] DERMATOPATHOLOGY LABORATORY Gross Description Specimen A: Received is one formalin filled container labeled with the patient's name and designated left ant tibia. The specimen consists of a curettage and desiccation biopsy measuring 56m7e9px. Jar 0. 0 1:22 PM [facility] DERMATOPATHOLOGY LABORATORY Microscopic Description Specimen A. SKIN, left ant tibia: There are fibroblasts and collagen bundles oriented parallel to the skin surface. There are elongated blood vessels, some of which are oriented perpendicular to the skin surface. No residual squamous cell carcinoma is identified. 0 1:22 PM [facility] DERMATOPATHOLOGY LABORATORY Disclaimer An external and internal positive and negative controls are appropriate for the histochemical, immunohistochemical and immunofluorescence stain(s) in this case (if any), except where stated explicitly. The performance characteristics of the stain(s) cited in this report were developed and its performance characteristic determined by the Dermatopathology Laboratory at [facility], directed by Dr. Mandy Neal. These tests need not be, and therefore are not, approved by the [place] Food and Drug Administration. The tests are used for clinical purposes. Billing Codes Specimen Charges Stain Charges 67052 1 0 1:22 PM [facility] DERMATOPATHOLOGY LABORATORY Embedded Images 0 1:22 PM [facility] DERMATOPATHOLOGY LABORATORY Pathology/Cytolog y TISSUE SPECIMEN FROM SKIN / Unknown 07/01/2020 07/02/2020 5:41 AM [facility] Byron Boothe MD LAB - PATHOLOGY/CYTOLOGY ORDERAB LES Final Result DERMATOPATHOLOGY LABORATORY [facility] - Department of Dermatology [facility] Specialized Medicine [address] [place] [address], [address] [place] [address], [facility] [phone] documented in this encounter Visit Diagnoses Not on filedocumented in this encounter Care Teams [employer] Tree Farm Crew Boss Relationship Specialty Start Date End Date Sam Sagastume MD [address] [address] PCP - General Family Medicine 12/20/19 documented as of this encounter
--- OUTSIDE RECORDS SUMMARY | 2025-05-02 08:27 | XMS_ITS | Encounter Summary ---
Author Organization [facility] Address [address] [facility] [place] [address] Care Team Providers Care Kitchen Assistant Name Role Phone Sam Sagastume MD Primary Care Provider [phone] Encounter Details Date Type Department Care Team (Late st Contact Info) Description 06/13/2020 Lab Requisition [facility] [address] [facility], [place] [address] Byron Boothe MD [address] [place] [address] Social History Tobacco Use Types Packs/Day Years Used Date Smoking Tobacco: Never Smokeless Tobacco: Never Alcohol Use Standard Drinks/Week Comments Yes 0 (1 standard drink = 0.6 oz pur e alcohol) casual Comments No Sex and Gender Information Value Date Recorded Sex Assigned at Not on file Legal Sex Female 6:22 AM RESOURCE CENTER TEACHER Gender Identity Not on file Sexual Orientation Not on file documented as of this encounter Plan of Treatment Not on file documented as of this encounter Procedures Procedure Name Priority Date/Time Associated Diagnosis Comments DERMATOPATHOLOGY Routine 06/12/2020 12:0 0 AM RESOURCE CENTER TEACHER documented in this encounter Results * DERMATOPATHOLOGY (06/12/2020 12:00 AM RESOURCE CENTER TEACHER) Case Report Dermatopathology Report Case: [id number] Authorizing Provider: Byron Boothe MD Collected: 06/12/2020 12:00 AM Ordering Location: [facility] DermPath Lab Received: 06/13/2020 07:00 AM Pathologist: Kimberlyn Foss MD Specimen: Skin, left ant tibia 0 2:41 PM [facility] DERMATOPATHOLOGY LABORATORY Final Diagnosis Specimen A. SKIN, left ant tibia: SQUAMOUS CELL CARCINOMA, WELL DIFFERENTIATED (C44.729) 0 2:41 PM [facility] DERMATOPATHOLOGY LABORATORY at [address] [facility] Clinical History R/O SCC. 0 2:41 PM [facility] DERMATOPATHOLOGY LABORATORY Gross Description Specimen A: Received is one formalin filled container labeled with the patient's name and designated left ant tibia. The specimen consists of a shave biopsy measuring 0d2u2qa. Jar 0. 0 2:41 PM [facility] DERMATOPATHOLOGY LABORATORY Microscopic Description Specimen A. SKIN, left ant tibia: Arising in the epidermis and extending into the dermis there are irregularly shaped aggregates of keratinocytes showing evidence of premature cornification. 0 2:41 PM [facility] DERMATOPATHOLOGY LABORATORY Disclaimer An external and internal positive and negative controls are appropriate for the histochemical, immunohistochemical and immunofluorescence stain(s) in this case (if any), except where stated explicitly. The performance characteristics of the stain(s) cited in this report were developed and its performance characteristic determined by the Dermatopathology Laboratory at [facility], directed by Dr. Mandy Neal. These tests need not be, and therefore are not, approved by the [place] Food and Drug Administration. The tests are used for clinical purposes. Billing Codes Specimen Charges Stain Charges 09754 1 0 2:41 PM [facility] DERMATOPATHOLOGY LABORATORY Embedded Images 0 2:41 PM [facility] DERMATOPATHOLOGY LABORATORY Pathology/Cytolog y TISSUE SPECIMEN FROM SKIN / Unknown 06/12/2020 06/13/2020 7:00 AM [facility] us Byron Boothe MD LAB - PATHOLOGY/CYTOLOGY ORDERAB LES Final Result DERMATOPATHOLOGY LABORATORY [facility] - Department of Dermatology [address], [address] [phone] documented in this encounter Visit Diagnoses Not on filedocumented in this encounter Care Teams Kitchen Assistant Relationship Specialty Start Date End Date Sam Sagastume MD [address] [place] [address] PCP - General Family Medicine 12/20/19 documented as of this encounter
--- OUTSIDE RECORDS SUMMARY | 2025-05-02 08:27 | XMS_ITS | Clinical Summary ---
Author Organization [facility] Address [address] [place] [address] Care Team Providers Care Rubber Tubing Backer Name Role Phone Sam Sagastume MD Primary Care Provider [phone] Allergies No known active allergies Medications spironolactone (ALDACTONE) 100 mg tablet Take 1 tablet (100 mg total) by mouth daily 02/09/2025 Active venlafaxine XR (EFFEXOR-XR) 150 mg 24 hr capsule Take 1 capsule (150 mg total) by mouth 12/13/2024 Active magnesium gluconate 12.5 mg magne- sium (250 mg) tablet Take 250 mg by mouth 04/11/2024 Active calcium carbonate (TUMS) 1,250 mg (500 mg elemental) chewable tablet Take 500 mg by mouth 10/28/2023 Active cyanocobalamin (Vitamin B-12) 1,000 mcg tablet Take 1 tablet (1,000 mcg total) by mouth 12/04/2020 Active Encounters Date Type Department Care Team Description 2025 5:58 AM CDT - 2025 11:59 PM CDT Hospital Encounter [facility] GI Center [facility] [place] [address] Discharge Disposition: Discharge to home or self care 04/18/2025 6:05 AM CDT - 04/18/2025 11:59 PM CDT Hospital Encounter [facility] GI Center [facility] [place] [address] Dysphagia, unspecified type; Esophageal spasm Discharge Disposition: Discharge to home or self care 04/11/2025 Telephone [facility] GI Center [facility] [place] [address] Carine Linares RN 04/11/2025 Telephone [facility] Center [address] [place] [address] Morenita Early RN from Last 3 Months Surgical History Surgery Date Site/Laterality Comments COLONOSCOPY Medical History Medical History Date Comments Osteoporosis Social History Tobacco Use Types Packs/Day Years Used Date Smoking Tobacco: Never Assessed Comments Unknown Sex and Gender Information Value Date Recorded Sex Assigned at Not on file Legal Sex Female 10:09 PM YARN DUMPER Gender Identity Not on file Sexual Orientation Not on file Obstetrics History Last Filed Vital Signs Vital Sign Reading Time Taken Comments Blood Pressure 127/73 04/18/2025 6:16 AM CDT Pulse 70 04/18/2025 6:16 AM CDT Temperature - - Respiratory Rate 18 04/18/2025 6:16 AM CDT Oxygen Saturation 99% 04/18/2025 6:16 AM CDT Inhaled Oxygen Concentration - - Weight 56.7 kg (125 lb) 04/11/2025 8:45 AM CDT Height 170.2 cm (5' 7) 04/11/2025 8:45 AM CDT Body Mass Index 19.58 04/11/2025 8:45 AM CDT Plan of Treatment Health Maintenance Due Date Last Done Comments Cervical Cancer Screening 1960 Colon Cancer Screening-Colonoscopy 1960 Depression Screening 1960 Hepatitis C Screening 1960 Hepatitis B Screening 1979 Regular Well Visit/Exam 18-64 1979 Breast Cancer Screening-Mammogram 12/20/2021 12/20/2020, 12/20/2019, 11/04/2018, Additional history exists Covid-19 Vaccine ( season) 2025 04/29/2023, 11/05/2020, 10/11/2020 Influenza Vaccine (#1) 2025 , 05/11/2021, 04/27/2020, Additional history exists DTaP/Tdap/Td Vaccine (2 - Td or Tdap) 07/11/2029 07/11/2019 Zoster Vaccine Completed 07/13/2021, 05/11/2021 Pneumococcal vaccine <65 Aged Out No longer eligible based on patient's age to complete this topic Procedures Procedure Name Priority Date/Time Associated Diagnosis Comments HIGH RESOLUTION ESOPHAGEAL MOTILITY (MANOMETRY) Routine 04/20/2025 7:11 AM CDT Dysphagia, unspecified type Esophageal spasm from Last 3 Months Results * High resolution esophageal motility (manometry) - (04/20/2025 7:11 AM CDT) Anatomical Region Laterality Modality Other Keerthi Mayo NP GI LAB PROCEDURE ORDERABLES E dited Result - Final from Last 3 Months Insurance [employer] OOS Member Subscriber Plan / Payer (Ef fective 2025-Present) Name:Sparkle Sepulveda Relation to Subscriber:Spouse Name:SHANNON SEPULVEDA Date of :1960 (Home) Address: [address] [place] [address] Payer ID:[id number] ([facility]) Group ID:[id number] Type:MIKAYLA BLOOD Address: [facility] [address] [place] [address] [employer] OOS Care Teams Rubber Tubing Backer Relationship Specialty Start Date End Date Sam Sagastume MD [address] [employer] [address] PCP - General Family Medicine 03/28/25
--- OUTSIDE RECORDS SUMMARY | 2025-05-02 08:27 | XMS_ITS | Encounter Summary ---
Author Organization [facility] Address [address] [facility] [place] [address] Care Team Providers Care Credit Reference Clerk Name Role Phone Sam Sagastume MD Primary Care Provider [phone] Encounter Details Date Type Department Care Team (Late st Contact Info) Description 09/09/2023 Lab Requisition [facility] - DermPath Lab [address] [facility], [place] [phone] Byron Boothe MD [address] [place] [address] Social History Tobacco Use Types Packs/Day Years Used Date Smoking Tobacco: Never Smokeless Tobacco: Never Alcohol Use Standard Drinks/Week Comments Yes 0 (1 standard drink = 0.6 oz pur e alcohol) casual Comments No Sex and Gender Information Value Date Recorded Sex Assigned at Not on file Legal Sex Female 6:22 AM C DEVELOPER Gender Identity Not on file Sexual Orientation Not on file documented as of this encounter Plan of Treatment Not on file documented as of this encounter Procedures Procedure Name Priority Date/Time Associated Diagnosis Comments DERMATOPATHOLOGY Routine 09/08/2023 3:33 AM C DEVELOPER documented in this encounter Results * DERMATOPATHOLOGY (09/08/2023 3:33 AM C DEVELOPER) Case Report Dermatopathology Report Case: [id number] Authorizing Provider: Byron Boothe MD Collected: 09/08/2023 03:33 AM Ordering Location: [facility] DermPath Lab Received: 09/09/2023 07:43 AM Pathologist: Rosibel Foss MD Specimen: Skin, right 3rd finger periungual 4:48 PM [facility] DERMATOPATHOLOGY LABORATORY Final Diagnosis Specimen A. 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 The specimen consists of a shave removal measuring 6x4x1 mm. Jar 0. 4:48 PM [facility] DERMATOPATHOLOGY LABORATORY Microscopic Description Specimen A. SKIN, right 3rd finger periungual: Sections show acral skin with mucin in pools trapped within the cornified layer. There is also mucinous degeneration of the superficial dermis with minimal inflammation. 4:48 PM [facility] DERMATOPATHOLOGY LABORATORY Disclaimer An external and internal positive and negative controls are appropriate for the histochemical, immunohistochemical and immunofluorescence stain(s) in this case (if any), except where stated explicitly. The performance characteristics of the stain(s) cited in this report were developed and its performance characteristic determined by the Dermatopathology Laboratory at [facility], directed by Dr. Mandy Neal. These tests need not be, and therefore are not, approved by the [place] Food and Drug Administration. The tests are used for clinical purposes. Billing Codes Specimen Charges Stain Charges 96210 1 4:48 PM C DEVELOPER DERMATOPATHOLOGY LABORATORY Embedded Images 4:48 PM [facility] DERMATOPATHOLOGY LABORATORY Pathology/Cytolo gy TISSUE SPECIMEN FROM SKIN / Unknown 09/08/2023 3:33 AM C DEVELOPER 09/09/2023 7:43 AM C DEVELOPER us Byron Boothe MD LAB - PATHOLOGY/CYTOLOGY ORDERAB LES Final Result DERMATOPATHOLOGY LABORATORY [facility] - Department of Dermatology [facility] [address] [place] [address], [address] [phone] documented in this encounter Visit Diagnoses Not on filedocumented in this encounter Care Teams Credit Reference Clerk Relationship Specialty Start Date End Date Sam Sagastume MD [address] [facility] [address] [address] PCP - General Family Medicine 12/20/19 documented as of this encounter
--- OUTSIDE RECORDS SUMMARY | 2025-05-02 08:27 | XMS_ITS | Clinical Summary ---
Author Organization [facility] Address [address] [place] [address] Care Team Providers Care Supply Chain Program Manager Name Role Phone Sam Sagastume MD Primary Care Provider [phone] Source Comments [facility],non-owned Affiliates and Associated Physician Practices is amultiple site organization consisting of ambulatory clinics and hospital sitesin [place], [place], [place] and [place]. This disclosure is being madepursuant to the Care Everywhere program and may not contain all information available regarding this patient. Last updated 18.[facility] Allergies No known active allergies Medications * Be aware that medications may not be up to date on this document. Alwaysverify current medications with the patient. fluticasone propionate (FLONASE) 50 MCG/ACT nasal spray [...] on file Legal Sex Female 6:22 AM ASIC VERIFICATION ENGINEER Gender Identity Not on file Sexual Orientation Not on file Last Filed Vital Signs Vital Sign Reading Time Taken Comments Blood Pressure 120/74 06/03/2015 9:39 AM ASIC VERIFICATION ENGINEER Pulse - - Temperature - - Respiratory Rate - - Oxygen Saturation - - Inhaled Oxygen Concentration - - Weight 62.1 kg (137 lb) 06/03/2015 9:39 AM ASIC VERIFICATION ENGINEER Height 168.9 cm (5' 6.5) 06/03/2015 9:39 AM ASIC VERIFICATION ENGINEER Body Mass Index 21.78 06/03/2015 9:39 AM ASIC VERIFICATION ENGINEER Plan of Treatment Health Maintenance Due Date [...] SCREENING 01/30/2023 01/30/2013 Colorectal Cancer Screening 01/30/2023 DEPRESSION SCREENING 08/02/2024 COVID-19 VACCINE ( season) 2025 INFLUENZA VACCINE (#1) 2025 Respiratory Syncytial Virus (RSV) Vaccine Pt: or [...] complete this topic MENINGOCOCCAL (Group B) VACCINE SHARED DECISION-MAKING Aged Out No longer eligible based on patient's age to complete this topic MENINGOCOCCAL GROUPS A/C/Y/W VACCINE Aged Out No longer eligible based [...] either breast. Sam Sagastume MD MAMMO ORDERABLES Final Result * PAP IG REFLX HPV ALL PTH (PO REF LAB) (05/11/2013 9:39 AM CDT) Diagnosis [facility] INSURANCE BILL Comment:NEGATIVE FOR INTRAEP ITHELIAL LESION AND MALIGNANCY. Specimen Adequacy [facility] INSURANCE BILL Comment: Satisfactory for evaluation. Endocervical and/or squamous metaplastic cells (endocervical component) are present. Clinician Provided ICD9 [facility] INSURANCE BILL Comment:V72.31 ; Routine classics professor ecological examination Performed by [facility] INSURANCE BILL Comment:Sandro Oseguera, Cytot echnologist (ASCP) Comment . [facility] INSURANCE BILL Note [facility] INSURANCE BILL Comment: The Pap smear is a screening test designed to aid in the detection of premalignant and malignant conditions of the uterine cervix. It is not a diagnostic procedure and should not be used as the sole means of detecting cervical cancer. Both false-positive and false-negative reports do occur. . IGLBP CPT Code Automation [facility] INSURANCE BILL Comment: This liquid based ThinPrep(R) pap test was screened with the use of an image guided system. Note [facility] INSURANCE BILL Comment: The HPV DNA reflex criteria were not met with this specimen result therefore, no HPV testing was performed. . MICROSCOPIC CYTOLOGIC EXAMINATION OF SMEAR OF SPECIMEN FROM FEMALE GENITAL TRACT PREPARED USING PAPANICOLAOU TECHNIQUE / Unknown 05/11/2013 9:39 AM CDT 05/12/2013 2:36 AM CDT Narrative [facility] INSURANCE BILL - 05/15/2013 2:18 PM CDT No. of containers..01 CYTYC Thin Prep Vial Resulting Agency Comment [address] Gino Mccurdy [phone] Flex Agustin MD LAB - PATHOLOGY/CYTOLOGY BENJAMÍN DUQUE Final Result [facility] INSURANCE BILL [address] [place] [address] from Last 3 Months or Most Recently Relevant to Health Maintenance Insurance [facility] SELF PAY NO INSURANCE Member Subscriber Plan / Payer (Ef fective for All Dates) Name:Yves Sepulveda Member ID:Not on file Relation to Subscriber:Not on file Name:YVES SEPULVEDA Subscriber ID:Not on file (Home) Address: [address] [place] [id number] Payer ID:Not on file Group ID:Not on file Type:Self Pay Address: [place], [place] Care Teams Supply Chain Program Manager Relationship Specialty Start Date End Date Sam Sagastume MD [address] [place] [address] PCP - General Family Medicine 12/20/19
== END 2025-05-02 08:19 | disposition home or self-care (01) ==
PROVIDERS: PCP Family Medicine; Visit Provider Obstetrics & Gynecology Gynecology
DX: Z12.31 Encounter for screening mammogram for malignant neoplasm of breast (principal); N63.14 Unspecified lump in the right breast, lower inner quadrant; N64.89 Other specified disorders of breast
CPT/HCPCS: 77063; 77067

== ENCOUNTER 2025-05-22 09:07 | Outpatient (CLI) | payer BC, SELFPAY ==
--- NOTE | ~2025-05-22 | MMUS_ITS ---
EXAMINATION: US breast BI limited, MM diagnostic marina BI w brittayn HISTORY: Inconclusive mammogram TECHNIQUE: Additional images of both breasts ]] were performed using full field digital mammography. 3-D tomosynthesis were also obtained and synthetic 2-D images were generated. CAD analysis was submitted and interpreted. High- resolution bilateral breast ultrasound was performed.] ] COMPARISON: Mammograms from 05/02/2025, 02/17/2024 and 12/24/2022 BREAST PARENCHYMAL COMPOSITION: The breasts are heterogeneously dense, which may obscure small masses. FINDINGS: MAMMOGRAPHIC FINDINGS: Redemonstration of the 5 mm mass in the lower inner quadrant of the right breast, anterior depth. The finding is probably benign. Redemonstration of the focal asymmetry in the upper-outer quadrant of the left breast, middle depth.The finding is probably benign. ULTRASOUND: There is a 5 x 3 x 3 mm wider than tall hypoechoic mass in the right breast at the 4:00 position 3 cm from the nipple. The finding is wider than tall. Margins are well-circumscribed. No internal color Doppler flow. No posterior acoustic shadowing. The finding may correspond with the mammographic mass in the lower inner quadrant of the right breast. The finding is probably benign. There is a 4 x 3 x 3 mm hypoechoic cyst versus solid mass in the right breast at the 4:00 position 4 cm from the nipple. The finding is partially circumscribed. No internal color Doppler flow. No posterior acoustic shadowing. The finding is probably benign. There is a 6 x 7 x 4 mm wider than tall well-circumscribed hypoechoic cyst versus solid mass in the left breast at 3:00 position 3 cm from the nipple middle depth. No internal color Doppler flow. No posterior acoustic shadowing. The finding is probably benign. The finding may correspond with the focal asymmetry in the upper-outer quadrant of the left breast. There is a 4 x 3 x 2 mm benign cyst in the left breast at the 3:00 position 3 cm from the nipple. IMPRESSION/RECOMMENDATION: 1. Probably benign findings in both breasts. A bilateral diagnostic mammogram and bilateral diagnostic breast ultrasound in 6 months is recommended. BI-RADS 3-Probably benign-Short interval follow-up suggested. Reviewed, dictated and finalized at location Q. IMPRESSION/RECOMMENDATION: 1. Probably benign findings in both breasts. A bilateral diagnostic mammogram a nd bilateral diagnostic breast ultrasound in 6 months is recommended. BI-RADS 3-Probably benign-Short interval follow-up suggested. IMPRESSION/RECOMMENDATION: 1. Probably benign findings in both breasts. A bilateral diagnostic mammogram a nd bilateral diagnostic breast ultrasound in 6 months is recommended. BI-RADS 3-Probably benign-Short interval follow-up suggested.
--- OUTSIDE RECORDS SUMMARY | 2025-05-22 10:02 | XMS_ITS | Clinical Summary ---
Author Organization [facility] Address [address] [facility] [place] [address] Care Team Providers Care Security Police Officer Name Role Phone Sam Sagastume MD Primary Care Provider [phone] Source Comments [facility],non-owned Affiliates and Associated Physician Practices is amultiple site organization consisting of ambulatory clinics and hospital sitesin [place], [place], [place] and [place]. This disclosure is being madepursuant to the Care Everywhere program and may not contain all information available regarding this patient. Last updated 18.[facility] Allergies No known active allergies Medications * [...] on file Legal Sex Female 6:22 AM INSURANCE INSPECTOR Gender Identity Not on file Sexual Orientation Not on file Last Filed Vital Signs Vital Sign Reading Time Taken Comments Blood Pressure 120/74 06/03/2015 9:39 AM INSURANCE INSPECTOR Pulse - - Temperature - - Respiratory Rate - - Oxygen Saturation - - Inhaled Oxygen Concentration - - Weight 62.1 kg (137 lb) 06/03/2015 9:39 AM INSURANCE INSPECTOR Height 168.9 cm (5' 6.5) 06/03/2015 9:39 AM INSURANCE INSPECTOR Body Mass Index 21.78 06/03/2015 9:39 AM INSURANCE INSPECTOR Plan of Treatment Health Maintenance Due Date [...] REF LAB) (05/11/2013 9:39 AM CDT) Diagnosis [facility] INSURANCE BILL Comment:NEGATIVE FOR INTRAEP ITHELIAL LESION AND MALIGNANCY. Specimen Adequacy [facility] INSURANCE BILL Comment: Satisfactory for evaluation. Endocervical and/or squamous metaplastic cells (endocervical component) are present. Clinician Provided ICD9 [facility] INSURANCE BILL Comment:V72.31 ; Routine engineering technical writer ecological examination Performed by [facility] INSURANCE BILL Comment:Sandro Oseguera, Cytot echnologist (ASCP) Comment . [facility] INSURANCE BILL Note [facility] INSURANCE BILL Comment: The Pap smear is a screening test designed to aid in the detection of premalignant and malignant conditions of the uterine cervix. It is not a diagnostic procedure and should not be used as the sole means of detecting cervical cancer. Both false-positive and false-negative reports do occur. . IGLBP CPT Code Automation [facility] INSURANCE BILL Comment: This liquid based ThinPrep(R) pap test was screened with the use of an image guided system. Note [facility] INSURANCE BILL Comment: The HPV DNA reflex criteria were not met with this specimen result therefore, no HPV testing was performed. . MICROSCOPIC CYTOLOGIC EXAMINATION OF SMEAR OF SPECIMEN FROM FEMALE GENITAL TRACT PREPARED USING PAPANICOLAOU TECHNIQUE / Unknown 05/11/2013 9:39 AM CDT 05/12/2013 2:36 AM CDT Narrative [facility] INSURANCE BILL - 05/15/2013 2:18 PM CDT No. of containers..01 CYTYC Thin Prep Vial Resulting Agency Comment [address] Gino Mccurdy [phone] Flex Agustin MD LAB - PATHOLOGY/CYTOLOGY BENJAMÍN DUQUE Final Result [facility] INSURANCE BILL [address] [place] [address] from Last 3 Months or Most Recently Relevant to Health Maintenance Insurance [facility] SELF PAY NO INSURANCE Member Subscriber Plan / Payer (Ef fective for All Dates) Name:Yves Sepulveda Member ID:Not on file Relation to Subscriber:Not on file Name:YVES SEPULVEDA Subscriber ID:Not on file (Home) Address: [address] [place] [phone] Payer ID:Not on file Group ID:Not on file Type:Self Pay Address: [place], [place] Care Teams Security Police Officer Relationship Specialty Start Date End Date Sam Sagastume MD [address] [place] [address] PCP - General Family Medicine 12/20/19
--- OUTSIDE RECORDS SUMMARY | 2025-05-22 10:03 | XMS_ITS | Encounter Summary ---
Author Organization [facility] Address [address] [facility] [place] [address] Care Team Providers Care Bin Tripper Operator Name Role Phone Sam Sagastume MD Primary Care Provider [phone] Encounter Details Date Type Department Care Team (Late st Contact Info) Description 06/13/2020 Lab Requisition [facility] D[facility] [address] [facility] [place] [address] Byron Boothe MD [address] [place] [address] Social History Tobacco Use Types Packs/Day Years Used Date Smoking Tobacco: Never Smokeless Tobacco: Never Alcohol Use Standard Drinks/Week Comments Yes 0 (1 standard drink = 0.6 oz pur e alcohol) casual Comments No Sex and Gender Information Value Date Recorded Sex Assigned at Not on file Legal Sex Female 6:22 AM SCHOOL YEAR NANNY Gender Identity Not on file Sexual Orientation Not on file documented as of this encounter Plan of Treatment Not on file documented as of this encounter Procedures Procedure Name Priority Date/Time Associated Diagnosis Comments DERMATOPATHOLOGY Routine 06/12/2020 12:0 0 AM SCHOOL YEAR NANNY documented in this encounter Results * DERMATOPATHOLOGY (06/12/2020 12:00 AM SCHOOL YEAR NANNY) Case Report Dermatopathology Report Case: [id number] Authorizing Provider: Byron Boothe MD Collected: 06/12/2020 12:00 AM Ordering Location: [facility] DermPath Lab Received: 06/13/2020 07:00 AM Pathologist: Kimberlyn Foss MD Specimen: Skin, left ant tibia 0 2:41 PM [facility] DERMATOPATHOLOGY LABORATORY Final Diagnosis Specimen A. SKIN, left ant tibia: SQUAMOUS CELL CARCINOMA, WELL DIFFERENTIATED (C44.729) 0 2:41 PM [facility] DERMATOPATHOLOGY LABORATORY at [address] [facility] Clinical History R/O SCC. 0 2:41 PM [facility] DERMATOPATHOLOGY LABORATORY Gross Description Specimen A: Received is one formalin filled container labeled with the patient's name and designated left ant tibia. The specimen consists of a shave biopsy measuring [id number]. Jar 0. 0 2:41 PM [facility] DERMATOPATHOLOGY LABORATORY Microscopic Description Specimen A. SKIN, left ant tibia: Arising in the epidermis and extending into the dermis there are irregularly shaped aggregates of keratinocytes showing evidence of premature cornification. 0 2:41 PM [facility] DERMATOPATHOLOGY LABORATORY Disclaimer An external and internal positive and negative controls are appropriate for the histochemical, immunohistochemical and immunofluorescence stain(s) in this case (if any), except where stated explicitly. The performance characteristics of the stain(s) cited in this report were developed and its performance characteristic determined by the Dermatopathology Laboratory at [facility], directed by Dr. Mandy Neal. These tests need not be, and therefore are not, approved by the [place] Food and Drug Administration. The tests are used for clinical purposes. Billing Codes Specimen Charges Stain Charges 19713 1 0 2:41 PM [facility] DERMATOPATHOLOGY LABORATORY Embedded Images 0 2:41 PM [facility] DERMATOPATHOLOGY LABORATORY Pathology/Cytolog y TISSUE SPECIMEN FROM SKIN / Unknown 06/12/2020 06/13/2020 7:00 AM [facility] us Byron Boothe MD LAB - PATHOLOGY/CYTOLOGY ORDERAB LES Final Result DERMATOPATHOLOGY LABORATORY [facility] - Department of Dermatology [address], [address] [phone] documented in this encounter Visit Diagnoses Not on filedocumented in this encounter Care Teams Bin Tripper Operator Relationship Specialty Start Date End Date Sam Sagastume MD [address] [place] [address] PCP - General Family Medicine 12/20/19 documented as of this encounter
--- OUTSIDE RECORDS SUMMARY | 2025-05-22 10:03 | XMS_ITS | Clinical Summary ---
Author Organization [facility] Address [address] [place] [address] Care Team Providers Care Portainer Operator Name Role Phone Sam Sagastume MD Primary Care Provider [phone] Allergies No known active allergies Medications spironolactone [...] (1,000 mcg total) by mouth 12/04/2020 Active Active Problems Problem Noted Date Diagnosed Date Dysphagia 05/18/2025 Esophageal spasm 05/18/2025 Encounters Date Type Department Care Team Description 05/18/2025 Telephone [facility] Gastroenterology [address] [facility] Advanced Medicine [address]th [place] [address] [place] [address] Dipti Clement RMA PRE PROCEDURE ASSESSMENT 05/18/2025 Orders Only [facility] Gastroenterology [address] [facility] 12th [place] [address] [place] [address] Jose Alejandro Tejada MD Dysphagia, unspecified type (Primary Dx); Esophageal spasm 05/08/2025 Telephone [facility] Gastroenterology [address] [facility] 12th [place] [address] [place] [phone] Dipti Clement RMA endo referral 2025 5:58 AM CDT - 2025 11:59 PM CDT Hospital Encounter [facility] [address] [place] [phone] Discharge Disposition: Discharge to home or self care 04/18/2025 6:05 AM CDT - 04/18/2025 11:59 PM CDT Hospital Encounter [facility] [address] [place] [phone] Dysphagia, unspecified type; Esophageal spasm Discharge Disposition: Discharge to home or self care 04/11/[address] [facility] [address] [place] [phone] Carine Linares RN 04/11/[address] [facility] [address] [place] [phone] Morenita Early, LOVE from Last 3 Months Surgical History Surgery Date Site/Laterality Comments COLONOSCOPY Medical History Medical History Date Comments Osteoporosis Social History Tobacco Use Types Packs/Day Years Used Date Smoking Tobacco: Never Assessed Comments Unknown Sex and Gender Information Value Date Recorded Sex Assigned at Not on file Legal Sex Female 10:09 PM DIRECTOR IT PROJECT Gender Identity Not on file Sexual Orientation [...] 04/11/2025 8:45 AM CDT Plan of Treatment Upcoming Encounters Date Type Department Care Team (Latest Contact Info) Description 06/13/2025 1:45 PM DIRECTOR IT PROJECT Hospital Encounter [facility] [address] [place] [phone] Jose Alejandro Tejada MD [address] [address] 06/13/2025 1:45 PM DIRECTOR IT PROJECT - 06/13/2025 2:15 PM DIRECTOR IT PROJECT Surgery [facility] [address] [place] [phone] Jose Alejandro Tejada MD [address] [place] [phone] EGD WITH ENDO-FLIP Scheduled Procedures Name Priority Associated Diagnoses Date/Ti me ESOPHAGOGASTRODUODENOSCOPY Dysphagia, unspecified type Esophageal spasm 06/13/2025 1:45 PM DIRECTOR IT PROJECT Health Maintenance Due Date Last Done Comments Cervical Cancer Screening 1961 Colon Cancer Screening-Colonoscopy 1961 Depression Screening 1961 Hepatitis C Screening 1961 Hepatitis B Screening 1979 Regular Well Visit/Exam 18-64 1979 Breast Cancer Screening-Mammogram 12/20/2021 12/20/2020, 12/20/2019, 11/04/2018, Additional history exists Covid-19 Vaccine (2024- season) 2025 04/29/2023, 11/05/2020, 10/11/2020 Influenza Vaccine [...] - Final from Last 3 Months Insurance [employer] Member Subscriber Plan / Payer (Ef fective 2025-Present) Name:Sparkle Sepulveda Relation to Subscriber:Spouse Name:SHANNON SEPULVEDA Date of :1960 (Home) Address: [address] [place], [place] [id number] Payer ID:[id number] (NAIC) Group ID:[id number] Type:MIKAYLA BLOOD Address: [place] [address] [employer] Care Teams Portainer Operator Relationship Specialty Start Date End Date Sam Sagastume MD [address] [address] PCP - General Family Medicine 03/28/25
--- OUTSIDE RECORDS SUMMARY | 2025-05-22 10:03 | XMS_ITS | Encounter Summary ---
Author Organization [facility] Address [address] [place] [address] Care Team Providers Care Publications Writer Name Role Phone Sam Sagastume MD Primary Care Provider [phone] Encounter Details Date Type Department Care Team (Late st Contact Info) Description 09/09/2023 Lab Requisition [facility] - DermPath Lab [address] [place] [id number] Byron Boothe MD [address] [place] [address] Social History Tobacco Use Types Packs/Day Years Used Date Smoking Tobacco: Never Smokeless Tobacco: Never Alcohol Use Standard Drinks/Week Comments Yes 0 (1 standard drink = 0.6 oz pur e alcohol) casual Comments No Sex and Gender Information Value Date Recorded Sex Assigned at Not on file Legal Sex Female 6:22 AM GALLERY OR MUSEUM GUIDE Gender Identity Not on file Sexual Orientation Not on file documented as of this encounter Plan of Treatment Not on file documented as of this encounter Procedures Procedure Name Priority Date/Time Associated Diagnosis Comments DERMATOPATHOLOGY Routine 09/08/2023 3:33 AM GALLERY OR MUSEUM GUIDE documented in this encounter Results * DERMATOPATHOLOGY (09/08/2023 3:33 AM GALLERY OR MUSEUM GUIDE) Case Report Dermatopathology Report Case: [id number] Authorizing Provider: Byron Boothe MD Collected: 09/08/2023 03:33 AM Ordering Location: [facility] DermPath Lab Received: 09/09/2023 07:43 AM Pathologist: Rosibel Foss MD Specimen: Skin, right 3rd finger periungual 4:48 PM [facility] DERMATOPATHOLOGY LABORATORY Final Diagnosis Specimen A. 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 The specimen consists of a shave removal measuring 6x4x1 mm. Jar 0. 4:48 PM [facility] DERMATOPATHOLOGY LABORATORY Microscopic Description Specimen A. SKIN, right 3rd finger periungual: Sections show acral skin with mucin in pools trapped within the cornified layer. There is also mucinous degeneration of the superficial dermis with minimal inflammation. 4:48 PM [facility] DERMATOPATHOLOGY LABORATORY Disclaimer An external and internal positive and negative controls are appropriate for the histochemical, immunohistochemical and immunofluorescence stain(s) in this case (if any), except where stated explicitly. The performance characteristics of the stain(s) cited in this report were developed and its performance characteristic determined by the Dermatopathology Laboratory at [facility], directed by Dr. Mandy Neal. These tests need not be, and therefore are not, approved by the [place] Food and Drug Administration. The tests are used for clinical purposes. Billing Codes Specimen Charges Stain Charges 20905 1 4:48 PM GALLERY OR MUSEUM GUIDE DERMATOPATHOLOGY LABORATORY Embedded Images 4:48 PM [facility] DERMATOPATHOLOGY LABORATORY Pathology/Cytolo gy TISSUE SPECIMEN FROM SKIN / Unknown 09/08/2023 3:33 AM GALLERY OR MUSEUM GUIDE 09/09/2023 7:43 AM GALLERY OR MUSEUM GUIDE us Byron Boothe MD LAB - PATHOLOGY/CYTOLOGY ORDERAB LES Final Result DERMATOPATHOLOGY LABORATORY [facility] - Department of Dermatology Specialized Medicine [address] [place] [address], [address] [phone] documented in this encounter Visit Diagnoses Not on filedocumented in this encounter Care Teams Publications Writer Relationship Specialty Start Date End Date Sam Sagastume MD [address] [facility] [address] [address] PCP - General Family Medicine 12/20/19 documented as of this encounter
--- OUTSIDE RECORDS SUMMARY | 2025-05-22 10:03 | XMS_ITS | Encounter Summary ---
Author Organization [facility] Address [address] [place] [address] Care Team Providers Care Automatic Bow Maker Machine Tender Name Role Phone Sam Sagastume MD Primary Care Provider [phone] Encounter Details Date Type Department Care Team (Late st Contact Info) Description 07/02/2020 Lab Requisition [facility] [address] [facility] [place] [address] Byron Boothe MD [address] [place] [address] Social History Tobacco Use Types Packs/Day Years Used Date Smoking Tobacco: Never Smokeless Tobacco: Never Alcohol Use Standard Drinks/Week Comments Yes 0 (1 standard drink = 0.6 oz pur e alcohol) casual Comments No Sex and Gender Information Value Date Recorded Sex Assigned at Not on file Legal Sex Female 6:22 AM PLANT OPERATIONS ENGINEER Gender Identity Not on file Sexual Orientation Not on file documented as of this encounter Plan of Treatment Not on file documented as of this encounter Procedures Procedure Name Priority Date/Time Associated Diagnosis Comments DERMATOPATHOLOGY Routine 07/01/2020 12:0 0 AM PLANT OPERATIONS ENGINEER documented in this encounter Results * DERMATOPATHOLOGY (07/01/2020 12:00 AM PLANT OPERATIONS ENGINEER) Case Report Dermatopathology Report Case: [id number] Authorizing Provider: Byron Boothe MD Collected: 07/01/2020 12:00 AM Ordering Location: [facility] DermPath Lab Received: 07/02/2020 05:41 AM Pathologist: Milagro French MD Specimen: Skin, left ant tibia 0 1:22 PM [facility] DERMATOPATHOLOGY LABORATORY Final Diagnosis Specimen A. SKIN, left ant tibia: DERMAL SCAR RESIDUAL SQUAMOUS CELL CARCINOMA NOT IDENTIFIED (L90.5) 0 1:22 PM [facility] DERMATOPATHOLOGY LABORATORY at [address] PLANT OPERATIONS ENGINEER Clinical History Bx proven SCC. Previous Bx: [id number]. 0 1:22 PM [facility] DERMATOPATHOLOGY LABORATORY Gross Description Specimen A: Received is one formalin filled container labeled with the patient's name and designated left ant tibia. The specimen consists of a curettage and desiccation biopsy measuring [id number]. Jar 0. 0 1:22 PM [facility] DERMATOPATHOLOGY LABORATORY Microscopic Description Specimen A. SKIN, left ant tibia: There are fibroblasts and collagen bundles oriented parallel to the skin surface. There are elongated blood vessels, some of which are oriented perpendicular to the skin surface. No residual squamous cell carcinoma is identified. 0 1:22 PM [facility] DERMATOPATHOLOGY LABORATORY Disclaimer An external and internal positive and negative controls are appropriate for the histochemical, immunohistochemical and immunofluorescence stain(s) in this case (if any), except where stated explicitly. The performance characteristics of the stain(s) cited in this report were developed and its performance characteristic determined by the Dermatopathology Laboratory at [facility], directed by Dr. Mandy Neal. These tests need not be, and therefore are not, approved by the [place] Food and Drug Administration. The tests are used for clinical purposes. Billing Codes Specimen Charges Stain Charges 84795 1 0 1:22 PM [facility] DERMATOPATHOLOGY LABORATORY Embedded Images 0 1:22 PM [facility] DERMATOPATHOLOGY LABORATORY Pathology/Cytolog y TISSUE SPECIMEN FROM SKIN / Unknown 07/01/2020 07/02/2020 5:41 AM [facility] Byron Boothe MD LAB - PATHOLOGY/CYTOLOGY ORDERAB LES Final Result DERMATOPATHOLOGY LABORATORY [facility] - Department of Dermatology [facility] Specialized Medicine [address] [place] [address], [address] [place] [address], [facility] [phone] documented in this encounter Visit Diagnoses Not on filedocumented in this encounter Care Teams Automatic Bow Maker Machine Tender Relationship Specialty Start Date End Date Sam Sagastume MD [address] [address] PCP - General Family Medicine 12/20/19 documented as of this encounter
== END 2025-05-22 09:08 | disposition home or self-care (01) ==
LOC: CHSIMG 09:09
PROVIDERS: PCP Family Medicine; Visit Provider Obstetrics & Gynecology Gynecology
DX: R92.8 Other abnormal and inconclusive findings on diagnostic imaging of breast (principal)
CPT/HCPCS: 76642; 77062; 77066; G0279